=== PATIENT | female | born 1955 | race Caucasian/White ===

== ENCOUNTER 2020-01-14 00:43 | Day surgery (SDC) | payer OTHER, SELFPAY ==
[2020-01-11 12:07] VITALS: BMI 26.6
[2020-01-14] VITALS (16 sets, daily range): BP systolic 116–168; BP diastolic 65–98; PULSE 67–82; RESP 12–20; TEMP 36.8; O2SAT 94–100
[2020-01-14 11:20] LABS: Basophils Absolute Auto 0.1 K/mm3 (0.0-0.1); Basophils Percent Auto 1.1 % (0.2-1.2); Eosinophils Absolute Auto 0.1 K/mm3 (0-0.3); Eosinophils Percent Auto 2.5 % (0-4.4); Hematocrit 39.3 % (37.0-47.0); Immature Granulocyte Absolute 0.02 K/mm3 (0.00-0.031); Immature Granulocyte Percent A 0.4 % (0-0.5); Lymphocytes Absolute Auto 2.46 K/mm3 (0.9-3.2); Lymphocytes Percent Auto 44.6 % (18.3-44.2); Mean Corpuscular HGB Conc 33.1 g/dl (32-36); Mean Corpuscular Volume 96.8 fl (80-100); Monocytes Absolute Auto 0.5 K/mm3 (0.1-0.6); Monocytes Percent Auto 8.3 % (2.6-8.5); Neutrophils Absolute Auto 2.4 K/mm3 (1.3-6.7); Neutrophils Percent Auto 43.1 % (45.5-73.1); Platelet Count Result 245 k/mm3 (150-375); Red Blood Count 4.06 M/mm3 (4.2-5.4); Red Cell Distribution Width 12.1 % (11.5-14.5); White Blood Count 5.5 K/mm3 (4.5-10.0)
[2020-01-14 11:29] LABS: INR 0.9; Partial Thromboplastin Time 32.1 SECONDS (22.3-36.8); Prothrombin Time 12.3 Seconds (11.1-14.7)
[2020-01-14 11:31] LABS: Blood Urea Nitrogen 6 mg/dL (7-17); Calcium 8.7 mg/dL (8.4-10.2); Carbon Dioxide 28 mmol/L (22-30); Chloride 100 mmol/L (98-107); Estimated CRCL calculation 64 ml/min; Estimated Glomerular Filt Rate > 60; Glucose 86 mg/dL (65-105); Potassium 4.1 mmol/L (3.4-5.0); Sodium 132 mmol/L (137-145)
--- NOTE | 2020-01-14 12:35 | WPDMODSED ---
Moderate Sedation Note-Pt Data Patient Data Allergies Allergy/AdvReac Type Severity Reaction Status Date / Time naproxen Allergy Unknown Nausea Verified 09/28/18 12:47 Home Medications Medication Instructions Recorded Confirmed Type albuterol sulfate [Ventolin HFA] 1 inh INHALATION QID PRN 01/14/20 01/14/20 History aspirin 81 mg PO DAILY 01/14/20 01/14/20 History cilostazol 100 mg PO BID 01/14/20 01/14/20 History clopidogrel 75 mg PO DAILY 01/14/20 01/14/20 History fluticasone propionate 1 inh INHALATION BID 01/14/20 01/14/20 History gabapentin 300 mg PO QID 01/14/20 01/14/20 History loratadine 10 mg PO DAILY 01/14/20 01/14/20 History memantine 5 mg PO BID 01/14/20 01/14/20 History prednisone 5 mg PO DAILY 01/14/20 01/14/20 History spironolactone 25 mg PO DAILY 01/14/20 01/14/20 History umeclidinium 1 inh INHALATION DAILY 01/14/20 01/14/20 History varenicline [Chantix] 1 mg PO BID 01/14/20 01/14/20 History Current Medications: Active Medications Sodium Chloride (Normal Saline Iv) 500 mls @ 100 mls/hr IV CONT .Q5H [facility] Sedation/Anesthesia: No previous sedation/anesthesia problems (including family history). [facility] Social History Social History Gender identity (if verbalized by the patient): Female Mod Sed Physical Exam Physical Exam Pre Procedural Exam: Normal: Appearance, Eyes, Ears, Nose, Neck, Throat, Airway, Lungs, Heart Size, Heart Rate, Heart Rhythm, Neuro Exam, Abdomen, Liver, Kidneys, Spleen, Breasts, Genitalia, Extremities and Skin Hours since solid foods: 8 Hours since liquid intake: 8 Internal Medicine - PN: Obj Da Vital Signs Vital Signs: Vital Signs - 24 hr 01/14/20 11:32 Temperature 36.8 C Pulse Rate 77 Respiratory Rate 13 Blood Pressure 130/84 Pulse Oximetry 94 Meds/Results Medications: Active Medications Generic Name Dose Route Start Last Admin Trade Name Freq PRN Reason Stop Dose Admin Sodium Chloride 500 mls @ 100 mls/hr 01/14/20 06:05 Normal Saline Iv IV CONT .Q5H [facility] Labs CBC & Chem 7: 01/14/20 10:58 01/14/20 10:58 Labs: Laboratory Results - last 24 hr 01/14/20 01/14/20 01/14/20 10:58 10:58 11:07 WBC 5.5 RBC 4.06 L Hgb 13.0 Hct 39.3 MCV 96.8 MCH 32.0 MCHC 33.1 RDW 12.1 Plt Count 245 MPV 9.0 Immature Gran % (Auto) 0.4 Neut % (Auto) 43.1 L Lymph % (Auto) 44.6 H [place] % (Auto) 8.3 Eos % (Auto) 2.5 Baso % (Auto) 1.1 Lymph # (Auto) 2.46 [place] # (Auto) 0.5 Eos # (Auto) 0.1 Baso # (Auto) 0.1 Abs Immat Gran (auto) 0.02 Absolute Neuts (auto) 2.4 Absolute Nucleated RBC 0.0 Nucleated RBC % 0.0 PT 12.3 INR 0.9 APTT 32.1 Sodium 132 L Potassium 4.1 Chloride 100 Carbon Dioxide 28 BUN 6 L Creatinine 0.70 Estim Creat Clear Calc 64 Estimated GFR > 60 Glucose 86 Calcium 8.7 ASA Classification/Sedation ASA Classification/Sedation ASA Class: II Risks: Risks, benefits and alternatives explained and patient/family accepted plan for sedation. Patient re-evaluated immediately prior to sedation.
--- NOTE | 2020-01-14 12:36 | WPDHPUPDATE1 ---
History and Physical Update Update Date/Time: 01/14/20 12:36 History and Physical has been reviewed, including an updated exam of the patient. There are NO changes in the patient's condition. Risks, benefits, and alternatives have been discussed and questions answered. Patient agrees to proceed with procedure.
--- NOTE | 2020-01-14 13:34 | WPDCARDPROC ---
Cardiac Cath Procedure Note Date of procedure:: 01/14/20 Performing physician:: Bruce Thomas MD Procedure: 1. Left heart catheterization, selective coronary angiogram. 2. Left ventricular angiogram. 3. Abdominal aorta angiogram with distal runoff 4. None selective left common iliac angiogram with distal runoff 5. Selective right common iliac artery angiogram with distal runoff 6. Conscious sedation, starting time is 12:40 p.m. ending time is 1:20 p.m. she received 2 mg of Versed 25 mcg fentanyl Bioprocessing Manufacturing Technician: Dr. Bruce Thomas Complications: None. Sedation: Conscious sedation, local anesthesia, using 1 mg of Versed said, 25 mcg of fentanyl, and using 1% lidocaine for local anesthesia. Technique: After informed consent was obtained from patient, was brought to the agriculture laboratory technician, put in the agriculture laboratory technician table, prepped and draped in usual sterile fashion. [place] sheath was inserted into the right common femoral artery, through the sheath 5 [place] JL4 catheter inserted, advanced to the left coronary artery, left coronary artery angiogram was obtained. The catheter was exchanged over guidewire into a 5 [place] JR4 catheter, advanced to the right coronary artery, right coronary artery angiogram was obtained. The catheter then was exchanged over guidewire into this 5 [place] pigtail catheter, advanced to left ventricle, left ventricular angiogram was obtained. The pigtail catheter was pulled to the level of the abdominal aorta, abdominal aorta angiogram with distal runoff was obtained. The catheter then was pulled to the level of the aortic bifurcation, none selective left common iliac artery angiogram with distal runoff was obtained. The catheter then was exchanged over a guidewire to 5 [place] JR4 catheter advanced to the proximal portion of the right common iliac right common iliac artery angiogram with distal runoff was obtained. The catheter then was pulled, the sheath was pulled applying manual pressure for arterial hemostasis. Patient tolerated the procedure no complication, taken from the agriculture laboratory technician to his room in stable condition stable vital signs. Hemodynamics: aortic pressure 104/60 . LV pressure 104/04 with LVEDP of 14 mmHg Angiographic findings: Left main: Medium size artery no significant disease or stenosis. Lad medium size artery showed, patent LAD stent with 40% InStent restenosis in the proximal portion of the stent Left circumflex artery, medium size artery, no significant disease or stenosis. RCA: Dominant vessel, showed mid RCA significant irregularity with a 40-50% disease. LV: Normal size left ventricle with normal left ventricular systolic function. Abdominal aorta showed significant atherosclerotic plaque with soft plaque noted in the area of infrarenal aorta, with 40% disease but soft plaque noted. Renal arteries are patent bilaterally with no obstructive lesions. Right common iliac showed distal 75% disease, right external iliac showed 90% disease, with sheath obstructing the common femoral artery indicative of significant disease of the right common femoral artery. Performed as patent right SFA showed [id number] diffuse disease, popliteal on the right is patent there is 3 vessel good distal runoff noted on the right side. Left common iliac showed minimal plaque, with distal iliac 90% disease with shelf-like lesion, extending to the left external iliac, left internal iliac seems to be totally occluded or subtotally occluded. Left common femoral is patent with minimal disease left profundus patent left SFA showed distal SFA 75% disease. Popliteal is patent, with good three-vessel distal runoff Summary: Mild coronary artery disease, normal left ventricular systolic function. Severe peripheral vascular disease with bilateral iliac artery disease, and left SFA stenosis Recommendation: Maximum medical treatment. Risk factor modification, for coronary artery disease. Will arrange for angioplasty stent placement to the lauren
--- NOTE | 2020-01-14 13:39 | SUR.PHASEII ---
Patient returns to [facility] room 3 post LHC and Peripheral Angiogram. Instructed on Bedrest and restrictions. 5 fr sheath remains in R femoral artery. No signs of bleeding or hematoma will continue to monitor.
--- NOTE | 2020-01-14 14:19 | SUR.PHASEII ---
1409 Sheath removed per protocol by Alexandria RN, Jeovany RN at bedside, firm manual pressure applied, no signs of bleeding or hematoma. Will continue to monitor.
--- NOTE | 2020-01-14 15:57 | SUR.PHASEII ---
1555-Pt up to thirty degrees. No distress noted. Groin soft and non-tender, no evidence of bleeding or hematoma noted. Will continue to monitor.
--- NOTE | 2020-01-14 20:48 | SUR.PHASEII ---
01/14/20:1940:PATIENT UP TO BEDSIDE RECLINER. RT GROIN SITE IS CLEAN AND DRY. NO HEMATOMA OR BLEEDING NOTED. PULSES WEAK AND PALPATED.
--- NOTE | 2020-01-14 20:49 | SUR.PHASEII ---
01/14/20:1945: PATIENT WALKED TO THE RESTROOM WITHOUT ASSISTANCE. NO LIGHTHEADEDNESS OR DIZZY. RT GROIN SITE IS UNCHANGED FROM EARLIER.
--- NOTE | 2020-01-14 20:51 | SUR.PHASEII ---
01/14/20:1947:DETAILED DISCHARGE INSTRUCTIONS GIVEN TO PATIENT. PATIENT VERBALIZED AN UNDERSTANDING OF THESE INSTRUCTION. PATIENTS DISCHARGE INSTRUCTIONS WITH PATIENT.
--- NOTE | 2020-01-14 20:52 | SUR.PHASEII ---
01/14/20:1954:IV REMOVED FROM LT HAND, SHEATH INTACT. NO HEMATOMA, SOME SLIGHT BLEEDING, HELD PRESSURE COUPLE MINUTES, APPLIED DRESSING.
--- NOTE | 2020-01-14 20:53 | SUR.PHASEII ---
01/14/20:1999: PATIENT DRESSED SELF WITHOUT ASSISTANCE. RT GROIN IS CLEAN AND DRY. NO HEMATOMA OR BLEEDING NOTED. PULSES PATED WEAK.
--- NOTE | 2020-01-14 20:55 | SUR.PHASEII ---
01/14/20:2002: PATIENT DISCHARGED TO HOME VIA WHEELCHAIR.
== END 2020-01-14 20:03 | disposition home or self-care (01) ==
PROVIDERS: Visit Provider Specialist
PROC: 4A023N7 Measurement of Cardiac Sampling and Pressure, Left Heart, Percutaneous Approach (ICD-10-PCS; CPT 93452; principal; 2020-01-14 12:00)
PROC: (CPT 75630; 2020-01-14 12:00)
DX: I25.10 Atherosclerotic heart disease of native coronary artery without angina pectoris (principal); I73.9 Peripheral vascular disease, unspecified; R06.00 Dyspnea, unspecified; R07.89 Other chest pain; R94.39 Abnormal result of other cardiovascular function study; I11.0 Hypertensive heart disease with heart failure; I50.9 Heart failure, unspecified; E78.5 Hyperlipidemia, unspecified; I34.1 Nonrheumatic mitral (valve) prolapse; J44.9 Chronic obstructive pulmonary disease, unspecified; F41.8 Other specified anxiety disorders; Z79.82 Long term (current) use of aspirin; Z79.02 Long term (current) use of antithrombotics/antiplatelets; Z95.5 Presence of coronary angioplasty implant and graft
CPT/HCPCS: 36415; 75630; 80048; 85025; 85610; 85730; 93458; C1887; C1894; J1644; J2250; J3010; J7040

== ENCOUNTER 2020-04-15 20:50 | Inpatient (IN) | payer OTHER, SELFPAY ==
[2020-04-15] VITALS (7 sets, daily range): BP systolic 133; BP diastolic 71; PULSE 106–115; RESP 16–26; TEMP 38.1–38.6; O2SAT 87–93
--- NOTE | ~2020-04-15 | CT_ITS ---
EXAMINATION: CTA chest PE protocol EXAM DATE: 04/15/2020 23:44 INDICATION: Shortness of breath. Airspace disease. TECHNIQUE: Spiral CTA of the chest (pulmonary arteries) was performed with 100 cc Omnipaque 350 intr avenous contrast injection. Images were acquired during the pulmonary arterial phase. Coronal maxi mum intensity projection 3D-reconstructions were created by the technologist on dedicated workstation . Axial, coronal and sagittal reformatted images were reviewed. The dose-length product (DLP) for t his examination was 975.36 mGy-cm. The exposure was tailored according to patient size (auto mA exp osure control), and iterative reconstruction (ASIR) was used as additional dose reduction technique. There is no prior study for comparison. FINDINGS: There are no pulmonary emboli in the 1st through 3rd order (central and interlobar) pulmon marcella arteries. Some loss of attenuation in the segmental pulmonary arteries due to respiratory motion and suboptimal opacification, but no intraluminal filling defects suspected (patient was scanned twi ce. No thoracic aortic dissection. There is right upper lobe posterior segmental airspace disease consistent with bacterial pneumonia. S cattered punctate tree-in-bud pattern reticular nodular opacities consistent with endobronchial sprea d of infection. Mild right hilar lymphadenopathy likely reactive. Small pericardial effusion, trace right pleural effusion. Tracheobronchial tree is patent. There is no mediastinal, hilar or axillar y lymphadenopathy. There is no pneumothorax. Heart normal in size. There is mild coronary arter ial calcification, arterial sclerosis. Upper abdomen is unremarkable. There is thoracic spondylosi s without osteoblastic or osteolytic lesions identified. IMPRESSION: 1. Limited segmental evaluation, but no pulmonary emboli are suspected. 2. Right upper lobe posterior segmental pneumonia, mild reactive hilar lymphadenopathy. Recommend fo llow-up chest x-ray to resolution. 3. Scattered tree-in-bud reticulonodular opacities likely endobronchial spread of infection. Reviewed, dictated and finalized at location G. IMPRESSION: 1. Limited segmental evaluation, but no pulmonary emboli are suspected. 2. Right upper lobe posterior segmental pneumonia, mild reactive hilar lymphad enopathy. Recommend follow-up chest x-ray to resolution. 3. Scattered tree-in-bud reticulonodular opacities likely endobronchial spread of infection.
--- NOTE | ~2020-04-15 | XR_ITS ---
EXAMINATION: XR chest 2V EXAM DATE: 04/15/2020 21:59 INDICATION: Short of breath. TECHNIQUE: Frontal and lateral projections of the chest obtained and reviewed. There is no prior solitario dy for comparison. FINDINGS: There is right upper lobe segmental airspace disease, appearance most consistent with bact erial pneumonia. Follow-up to resolution to exclude postobstructive infection from underlying cancer. Small amount of bibasilar linear atelectasis. Left basilar scarring. No pneumothorax or pleural effu jyoti. Cervical fusion hardware. Left rotator cuff repair anchors. IMPRESSION: Right upper lobe subsegmental pneumonia. Follow-up to resolution is indicated. Reviewed, dictated and finalized at location A. IMPRESSION: Right upper lobe subsegmental pneumonia. Follow-up to resolution i s indicated.
[2020-04-15 21:36] LABS: Hematocrit 37.1 % (37.0-47.0); Hemoglobin 13.2 g/dL (12.0-15.0); Mean Corpuscular HGB Conc 35.6 g/dl (32-36); Mean Platelet Volume 8.5 fl (7.4-10.4); Platelet Count Result 300 k/mm3 (150-375); Red Blood Count 4.12 M/mm3 (4.2-5.4); Red Cell Distribution Width 11.7 % (11.5-14.5); White Blood Count 14.9 K/mm3 (4.5-10.0)
[2020-04-15 21:52] LABS: Band Neutrophils Percent 3 % (0-6); Blood Urea Nitrogen 10 mg/dL (7-17); Calcium 8.4 mg/dL (8.4-10.2); Carbon Dioxide 24 mmol/L (22-30); Chloride 84 mmol/L (98-107); Estimated CRCL calculation 65 ml/min; Estimated Glomerular Filt Rate > 60; Glucose 121 mg/dL (65-105); Lymphocytes Absolute Manual 0.59 K/mm3 (1.1-4.5); Monocytes Absolute Manual 1.19 K/mm3 (0.1-0.90); Monocytes Percent Manual 8 % (3-9); Neutrophils Absolute Manual 13.11 K/mm3 (1.7-7.2); Neutrophils Percent Manual 85 % (46-73); Platelet Estimate Adequate (Adequate); Potassium 4.2 mmol/L (3.4-5.0); Sodium 117 mmol/L (137-145); Total Cells Counted 100
--- NOTE | 2020-04-15 22:24 | ECG_ITS ---
Measurements Intervals [place] Rate: 107 P: 67 AK: 131 QRS: -39 QRSD: 86 T: 72 QT: 322 QTc: 430 Interpretive Statements SINUS TACHYCARDIA LEFT AXIS DEVIATION CANNOT RULE OUT SEPTAL INFARCT, AGE INDETERMINATE BASELINE ARTIFACT- I, II, III, AVR, AVL, AVF, V1-V6 ABNORMAL ECG Electronically Signed On 04-16-2020 7:21:21 CDT by Sergio House D.O.
--- NOTE | 2020-04-15 22:30 | ED.SOB ---
HPI - SOB/Dyspnea General Chief Complaint: Shortness of Breath/Dyspnea <MU Vu Last Filed: 04/16/20 00:46> Stated Complaint: sob <MU Vu Last Filed: 04/16/20 00:46> Time Seen by Provider: 04/15/20 22:10 <MU Vu Last Filed: 04/16/20 00:46> Source: patient <MU Vu Last Filed: 04/16/20 00:46> Mode of arrival: EMS <MU Vu Filed: 04/16/20 00:46> Limitations: no limitations <MU Vu Last Filed: 04/16/20 00:46> History of Present Illness HPI Narrative: This is a 64 year old female that presents to the ER for cough x 1 week. Reports shortness of breath and right sided chest pain worse with breathing. Also reports fever and congestion. <MU Vu Last Filed: 04/16/20 00:46> Related Data Home Medications: Home Medications Medication Instructions Recorded Confirmed albuterol sulfate [Ventolin HFA] 1 inh INHALATION QID PRN 01/14/20 04/15/20 aspirin 81 mg PO DAILY 01/14/20 04/15/20 clopidogrel 75 mg PO DAILY 01/14/20 04/15/20 fluticasone propionate 1 inh INHALATION BID 01/14/20 04/15/20 gabapentin 300 mg PO QID 01/14/20 04/15/20 loratadine 10 mg PO DAILY 01/14/20 04/15/20 memantine 5 mg PO BID 01/14/20 04/15/20 prednisone 5 mg PO DAILY 01/14/20 04/15/20 spironolactone 25 mg PO DAILY 01/14/20 04/15/20 umeclidinium 1 inh INHALATION DAILY 01/14/20 04/15/20 varenicline [Chantix] 1 mg PO BID 01/14/20 04/15/20 <MU Vu Last Filed: 04/16/20 00:46> Allergies/Adverse Reactions: Allergies Allergy/AdvReac Type Severity Reaction Status Date / Time naproxen Allergy Unknown Nausea Verified 04/15/20 21:31 <Deandra Neves PA-C - Last Filed: 04/16/20 00:46> Review of Systems Review of Systems: Narrative: CONSTITUTIONAL: Reports fever ENT: Reports rhinorrhea, congestion. Denies sore throat, or otalgia. CARDIOVASCULAR: Reports chest pain. Denies palpitations, or edema. RESPIRATORY: Reports cough and dyspnea. <Deandra Neves PA-C - Last Filed: 04/16/20 00:46> All systems reviewed & are unremarkable except as noted in HPI and below <Deandra Neves PA-C - Last Filed: 04/16/20 00:46> [facility] Past Medical History Medical History: Medical History (Updated 04/16/20 @ 00:39 by Deandra Neves PA-C) History of CHF (congestive heart failure) History of COPD History of coronary artery disease <Deandra Neves PA-C - Last Filed: 04/16/20 00:46> Surgical History Surgical History: Surgical History (Updated 04/16/20 @ 00:34 by Deandra Neves PA-C) History of cardiac catheterization <Deandra Neves PA-C - Last Filed: 04/16/20 00:46> Family History Family History: Family History (Updated 04/16/20 @ 02:40 by Mimi Silverman RN) Mother Breast cancer COPD (chronic obstructive pulmonary disease) Cervical cancer Sibling Heart failure Alcoholism Multiple sclerosis <Deandra Neves PA-C - Last Filed: 04/16/20 00:46> Social History Social History: Social History (Updated 04/16/20 @ 00:33 by Deandra Neves PA-C) Smoking packs per day: 2 Smoking cigarettes per day: 40.0 Years smoked: 50 Smoking pack-years: 100.00 Smoking status: Current every day smoker Tobacco type: cigarettes Second hand tobacco smoke exposure: Yes Alcohol intake: never Substance use: never Substance use type: does not use Gender identity (if verbalized by the patient): Female Spiritual care concerns: No <Deandra Neves PA-C - Last Filed: 04/16/20 00:46> Exam Narrative: Exam Narrative: GENERAL: Elderly, well-nourished, and in no acute distress. HEAD: Normocephalic, atraumatic. EYES: EOMI. ENT: Nares clear, no rhinorrhea or epistaxis. Mucous membranes moist. Oropharynx without tonsillar hypertrophy exudate or other lesions. Bilateral TMs pearly dyer non-bulging NECK: Supple. No adenopathy or masses. CHEST:
[2020-04-15 22:36] LABS: Lactic Acid Reflex 1.2 mmol/L (0.7-2.1)
[2020-04-15] MEDS: ALBUTEROL SULFATE NEB 2.5 MG/0.5 ML INH 5 MG INHALATION (22:36)
[2020-04-15] MEDS: IPRATROPIUM BR 0.02% INH SOLN 0.5 MG/2.5 ML VIAL INHALATION (22:37)
[2020-04-15 22:48] LABS: INR 1.1; Partial Thromboplastin Time 36.1 SECONDS (22.3-36.8); Prothrombin Time 13.4 Seconds (11.1-14.7)
[2020-04-15 22:51] LABS: D Dimer 0.74 ug/mL (<0.48)
[2020-04-15 22:55] LABS: NT Pro B Type Natriuretic Pept 237 PG/ML (5-100); Troponin I < 0.012 ng/mL (0.000-0.034)
[2020-04-15 23:07] LABS: CRP 37.2 mg/dL (<1.0)
[2020-04-15] MEDS: SODIUM CHLORIDE 0.9% IV 500 ML 999 ML IV CONT (23:25)
[2020-04-16] VITALS (20 sets, daily range): BP systolic 83–127; BP diastolic 55–78; PULSE 78–106; RESP 16–24; TEMP 36.3–37.1; O2SAT 95–100; BMI 25.9
[2020-04-16] MEDS: IPRATROPIUM BR 0.02% INH SOLN 0.5 MG/2.5 ML VIAL INHALATION (00:17)
[2020-04-16] MEDS: ALBUTEROL SULFATE NEB 2.5 MG/0.5 ML INH 5 MG INHALATION (00:17)
[2020-04-16] MEDS: SODIUM CHLORIDE 0.9% IV 1,000 ML 999 ML IV CONT (00:30)
--- NOTE | 2020-04-16 02:23 | ADMGEN ---
This patient, Latoya Barlow, was admitted to Intensive Care Unit-3. Patient/family oriented to hospital policies and general routines including ID bracelet, bed and alarms, visiting hours, pain management, procedures, bathroom and other care routines, personal items, smoking policy, room service/diet, and visiting hours. Valuables list has been completed. Information on how to activate the Rapid Response Team has been discussed. Patient/Family are encouraged to report perceived risks to care and to ask questions if they do not understand what they are told or what they should do.
[2020-04-16] MEDS: ALBUTEROL SULFATE (*SP) AEROSOL 1 PUFF 6 PUFF INHALATION ×4 (03:02→20:59)
[2020-04-16 06:03] LABS: Basophils Percent Auto 0.2 % (0.2-1.2); Hematocrit 37.2 % (37.0-47.0); Hemoglobin 13.1 g/dL (12.0-15.0); Immature Granulocyte Absolute 0.09 K/mm3 (0.00-0.031); Immature Granulocyte Percent A 0.6 % (0-0.5); Lymphocytes Absolute Auto 0.99 K/mm3 (0.9-3.2); Lymphocytes Percent Auto 6.8 % (18.3-44.2); Mean Corpuscular HGB Conc 35.2 g/dl (32-36); Mean Corpuscular Hemoglobin 32.3 pg (26-34); Mean Corpuscular Volume 91.9 fl (80-100); Mean Platelet Volume 8.6 fl (7.4-10.4); Monocytes Absolute Auto 0.9 K/mm3 (0.1-0.6); Monocytes Percent Auto 5.9 % (2.6-8.5); Neutrophils Absolute Auto 12.7 K/mm3 (1.3-6.7); Neutrophils Percent Auto 86.5 % (45.5-73.1); Platelet Count Result 316 k/mm3 (150-375); Red Blood Count 4.05 M/mm3 (4.2-5.4); Red Cell Distribution Width 11.9 % (11.5-14.5); White Blood Count 14.6 K/mm3 (4.5-10.0)
[2020-04-16 06:22] LABS: Lactate Dehydrogenase 449 U/L (313-618)
[2020-04-16 06:47] LABS: CRP 33.3 mg/dL (<1.0)
[2020-04-16 07:54] LABS: Blood Urea Nitrogen 6 mg/dL (7-17); Calcium 8.4 mg/dL (8.4-10.2); Carbon Dioxide 25 mmol/L (22-30); Chloride 91 mmol/L (98-107); Estimated CRCL calculation 68 ml/min; Estimated Glomerular Filt Rate > 60; Glucose 123 mg/dL (65-105); Potassium 3.6 mmol/L (3.4-5.0); Sodium 124 mmol/L (137-145)
--- NOTE | 2020-04-16 09:23 | PM.IMHP ---
H&P: HPI History of Present Illness Chief complaint: Pneumonia, sepsis, hyponatremia Narrative: Date and Time of History and Physical: April 16, 2020 at 12:09 a.m. 5:00 a.m.. Date and Time of Admission Order: April 16, 2020 at 12:28 a.m.. Chief Complaint: Shortness of breath with bilateral rib pain. History of Present Illness: Latoya Barlow is a 64 year old female with known COPD, coronary artery disease, peripheral arterial disease and CHF who presented to the emergency room with a one-week history of shortness of breath along with bilateral lower rib pain. Patient reports symptoms were worsening over the past week. She did have subjective fever and chills at home but did not have a thermometer to check her temperature. She also reports decrease in appetite with poor oral intake. No nausea or vomiting. No abdominal pain. No constipation or diarrhea. She denies chest pain with her symptoms. No diaphoresis. She has been staying at home with the current pandemic only going out to stores for necessity. She has no known exposure to COVID-19 to her knowledge. She denies change in taste or smell. No vision changes. She does report some issues with memory prior to current situation. She does have a past history of having had pneumonia. She does continue to smoke 2 packs of cigarettes daily. With increasing symptoms, she did present to the emergency room. Findings in the emergency room were consistent with for possible COVID 19 infection. Also consistent with sepsis and hyponatremia. As a result, patient has been admitted to the IMU for further evaluation and treatment. Review of Systems Review of Systems: All systems reviewed & are unremarkable except as noted in HPI and below Constitutional: Constitutional: Reports chills, Reports fever(s) and Reports poor appetite Eyes: Eyes: Denies blurry vision and Denies diplopia ENT: Denies dysphagia, Denies nasal congestion and Denies nasal discharge Comments: no loss of taste or smell Cardiovascular: Cardiovascular: Denies chest pain, Denies leg edema and Denies lightheadedness Respiratory: Respiratory: Reports cough and Reports dyspnea Gastrointestinal: Gastrointestinal: Denies abdominal pain, Denies constipation, Denies diarrhea, Denies nausea and Denies vomiting Genitourinary: Genitourinary: Denies hematuria, Denies nocturia and Denies dysuria Musculoskeletal: Comments: bilateral rib pain with coughing; claudication pain in legs from known peripheral arterial disease Integumentary/Breasts: Skin/Breast: Denies rash Neurologic: Denies headache(s) Comments: known memory issues Psychiatric: Psychiatric: Denies anxiety and Denies depression Endocrine: Endocrine: Reports no additional endocrine complaints Hematologic/Lymphatic: Hematologic/Lymphatic: Reports no additional hematologic/lymphatic complaints Allergic/Immunologic: Allergic/Immunologic: Reports no additional allergic/immunologic complaints [facility] Past Medical History Medical History (Updated 04/16/20 @ 09:53 by Enedina Anders MD) History of CHF (congestive heart failure) History of COPD History of coronary artery disease Surgical History Surgical History H/O neck surgery pins placed in neck H/O: hysterectomy History of cardiac catheterization History of carpal tunnel release of both wrists History of tooth extraction Family History Family History Mother Breast cancer COPD (chronic obstructive pulmonary disease) Cervical cancer Sibling Heart failure Alcoholism Multiple sclerosis Social History Social History Social History: Patient is . She lives with her male friend. She has no children. She is a current smoker. She is a full code. She does designate her 2 sisters, Marisol Beard and Luz Mario, as her healt
[2020-04-16] MEDS: ASPIRIN 81 MG ENTERIC TABLET PO (10:35)
[2020-04-16] MEDS: CLOPIDOGREL BISULFATE 75 MG TABLET PO (10:35)
[2020-04-16] MEDS: GABAPENTIN 300 MG CAPSULE PO ×4 (10:36→20:27)
[2020-04-16] MEDS: predniSONE 5 MG TABLET PO (10:36)
[2020-04-16] MEDS: LORATADINE 10 MG TABLET PO (10:36)
[2020-04-16] MEDS: MEMANTINE 5 MG TABLET PO ×2 (10:36→20:27)
[2020-04-16] MEDS: ENOXAPARIN 40 MG/0.4 ML SYRINGE SUB-Q (10:37)
[2020-04-16 12:58] LABS: SARS-CoV-2 RNA PCR Negative
--- NOTE | 2020-04-16 16:35 | PCDIET ---
This patient, Latoya Barlow, was received from ICU 3 on 04/16/20 at 1635. Report received from LEXY Harrison. Patient oriented to unit policies and routines
--- NOTE | 2020-04-16 16:38 | PC.NURSE ---
This patient, Latoya Barlow, was transferred to [facility] on 04/16/20 at 1630 via bed without issue. Personal belongings and medications sent with patient. Belongings list checked. Report given to LEXY Mckeon. Appropriate documentation sent with patient.
[2020-04-17] VITALS (10 sets, daily range): BP systolic 103–141; BP diastolic 61–70; PULSE 70–94; RESP 18–20; TEMP 36.3–36.6; O2SAT 92–100
[2020-04-17] MEDS: ALBUTEROL SULFATE (*SP) AEROSOL 1 PUFF 6 PUFF INHALATION ×2 (02:50→08:13)
[2020-04-17 04:44] LABS: Basophils Percent Auto 0.1 % (0.2-1.2); Eosinophils Percent Auto 0.4 % (0-4.4); Hematocrit 33.7 % (37.0-47.0); Hemoglobin 11.6 g/dL (12.0-15.0); Immature Granulocyte Absolute 0.03 K/mm3 (0.00-0.031); Immature Granulocyte Percent A 0.4 % (0-0.5); Lymphocytes Absolute Auto 1.67 K/mm3 (0.9-3.2); Lymphocytes Percent Auto 22.4 % (18.3-44.2); Mean Corpuscular HGB Conc 34.4 g/dl (32-36); Mean Corpuscular Hemoglobin 31.4 pg (26-34); Mean Corpuscular Volume 91.3 fl (80-100); Mean Platelet Volume 8.3 fl (7.4-10.4); Monocytes Absolute Auto 0.7 K/mm3 (0.1-0.6); Monocytes Percent Auto 8.8 % (2.6-8.5); Neutrophils Absolute Auto 5.1 K/mm3 (1.3-6.7); Neutrophils Percent Auto 67.9 % (45.5-73.1); Platelet Count Result 322 k/mm3 (150-375); Red Blood Count 3.69 M/mm3 (4.2-5.4); Red Cell Distribution Width 11.8 % (11.5-14.5); White Blood Count 7.5 K/mm3 (4.5-10.0)
[2020-04-17 05:37] LABS: Alanine Aminotransferase 18 U/L (4-35); Albumin Level 3.1 g/dL (3.5-5.1); Alkaline Phosphatase 71 U/L (38-126); Aspartate Amino Transferase 42 U/L (14-36); Bilirubin,Total 0.1 mg/dL (0.2-1.3); Blood Urea Nitrogen 6 mg/dL (7-17); CRP 29.5 mg/dL (<1.0); Calcium 8.3 mg/dL (8.4-10.2); Carbon Dioxide 28 mmol/L (22-30); Chloride 95 mmol/L (98-107); Estimated CRCL calculation 68 ml/min; Estimated Glomerular Filt Rate > 60; Glucose 98 mg/dL (65-105); Potassium 3.6 mmol/L (3.4-5.0); Sodium 128 mmol/L (137-145)
[2020-04-17] MEDS: MEMANTINE 5 MG TABLET PO (09:14)
[2020-04-17] MEDS: CLOPIDOGREL BISULFATE 75 MG TABLET PO (09:14)
[2020-04-17] MEDS: GABAPENTIN 300 MG CAPSULE PO ×2 (09:14→12:52)
[2020-04-17] MEDS: ASPIRIN 81 MG ENTERIC TABLET PO (09:14)
[2020-04-17] MEDS: predniSONE 5 MG TABLET PO (09:14)
[2020-04-17] MEDS: LORATADINE 10 MG TABLET PO (09:14)
[2020-04-17] MEDS: ENOXAPARIN 40 MG/0.4 ML SYRINGE SUB-Q (09:15)
[2020-04-17] MEDS: VARENICLINE 1 MG TABLET PO (09:16)
--- NOTE | 2020-04-17 14:27 | PM.IMPN ---
Progress Note: A&P Assessment and Plan (1) Sepsis: Qualifiers: Acute respiratory failure type: with hypoxia Sepsis acute organ dysfunction status: with acute organ dysfunction Sepsis type: sepsis due to unspecified organism Severe sepsis acute organ dysfunction type: acute respiratory failure Severe sepsis shock status: without septic shock Qualified Code(s): A41.9 - Sepsis, unspecified organism; R65.20 - Severe sepsis without septic shock; J96.01 - Acute respiratory failure with hypoxia Code(s): A41.9 - Sepsis, unspecified organism Status: Acute Assessment and Plan: Criteria met on admission. Result of pneumonia. Blood pressure reviewed on 04/17/2020 and now slightly elevated. Not on IV fluids. COVID-19 infection negative. Continue antibiotics as noted below. Blood cultures x2 negative to date. WBC is normal. No longer requiring oxygen. Telemetry reviewed on 04/17/2020 with sinus rhythm. Will discharge home today as stable. (2) Community acquired pneumonia: Qualifiers: Laterality: right Lung location: upper lobe of lung Qualified Code(s): J18.9 - Pneumonia, unspecified organism Code(s): J18.9 - Pneumonia, unspecified organism Status: Acute Assessment and Plan: Chest x-ray on admission with right upper lobe subsegmental pneumonia. CTA chest with posterior segmental pneumonia, mild reactive hilar lymphadenopathy, no pulmonary emboli seen and scattered tree-in-bud reticulonodular opacities likely endobronchial spread of infection also present. Has been on IV azithromycin and ceftriaxone here. WBC is normal. Has now weaned to room air. Will discharge on oral Levaquin. (3) Suspected COVID-19 virus infection: Code(s): Z20.828 - Contact with and (suspected) exposure to other viral communicable diseases Status: Ruled-out Assessment and Plan: COVID-19 testing negative. Isolation discontinued. Elevated CRP result of pneumonia. (4) Acute hyponatremia: Code(s): E87.1 - Hypo-osmolality and hyponatremia Status: Acute Assessment and Plan: Sodium was down to 117 in the ER. Sodium has now stabilized at 1:28 a.m. today. This does appear to be within her baseline based on previous records. Will need to monitor as an outpatient as will need to restart her spironolactone for other reasons. (5) COPD (chronic obstructive pulmonary disease): Qualifiers: COPD type: unspecified COPD Qualified Code(s): J44.9 - Chronic obstructive pulmonary disease, unspecified Code(s): J44.9 - Chronic obstructive pulmonary disease, unspecified Status: Acute Assessment and Plan: Does not appear to have exacerbation at this time. Will have patient resume her home inhalers upon discharge. Continue treatment of pneumonia as noted above. (6) CAD (coronary artery disease): Qualifiers: Associated angina: without angina Coronary Disease-Associated Artery/Lesion type: [place] artery [place] vs. transplanted heart: [place] heart Qualified Code(s): I25.10 - Atherosclerotic heart disease of [place] coronary artery without angina pectoris Code(s): I25.10 - Atherosclerotic heart disease of [place] coronary artery without angina pectoris Status: Acute Assessment and Plan: Recent cardiac catheterization in January 2020 with no intervention needed. Medical management in place. Continue home Plavix and ASA. (7) CHF (congestive heart failure): Qualifiers: Heart failure chronicity: chronic Heart failure type: unspecified Qualified Code(s): I50.9 - Heart failure, unspecified Code(s): I50.9 - Heart failure, unspecified Status: Acute Assessment and Plan: No exacerbation. Spironolactone held on admission due to lower blood pressure. Blood pressure has now recovered and will resume at discharge. (8) Tobacco abuse: Code(s): Z72.0 - Tobacco use Status: Acute As
--- NOTE | 2020-04-17 18:52 | PM.DS ---
DS: Admitting Diagnosis Admitting Diagnosis Admitting Diagnosis: Sepsis, unspecified organism DS: Discharge Diagnosis Discharge Diagnosis (1) Sepsis: Qualifiers: Acute respiratory failure type: with hypoxia Sepsis acute organ dysfunction status: with acute organ dysfunction Sepsis type: sepsis due to unspecified organism Severe sepsis acute organ dysfunction type: acute respiratory failure Severe sepsis shock status: without septic shock Qualified Code(s): A41.9 - Sepsis, unspecified organism; R65.20 - Severe sepsis without septic shock; J96.01 - Acute respiratory failure with hypoxia Code(s): A41.9 - Sepsis, unspecified organism Status: Acute (2) Acute respiratory failure: Qualifiers: Respiratory failure complication: hypoxia Qualified Code(s): J96.01 - Acute respiratory failure with hypoxia Code(s): J96.00 - Acute respiratory failure, unspecified whether with hypoxia or hypercapnia Status: Acute (3) Community acquired pneumonia: Qualifiers: Laterality: right Lung location: upper lobe of lung Qualified Code(s): J18.9 - Pneumonia, unspecified organism Code(s): J18.9 - Pneumonia, unspecified organism Status: Acute (4) Suspected COVID-19 virus infection: Code(s): Z20.828 - Contact with and (suspected) exposure to other viral communicable diseases Status: Ruled-out (5) Acute hyponatremia: Code(s): E87.1 - Hypo-osmolality and hyponatremia Status: Acute (6) COPD (chronic obstructive pulmonary disease): Qualifiers: COPD type: unspecified COPD Qualified Code(s): J44.9 - Chronic obstructive pulmonary disease, unspecified Code(s): J44.9 - Chronic obstructive pulmonary disease, unspecified Status: Acute (7) CAD (coronary artery disease): Qualifiers: Associated angina: without angina Coronary Disease-Associated Artery/Lesion type: [place] artery [place] vs. transplanted heart: [place] heart Qualified Code(s): I25.10 - Atherosclerotic heart disease of [place] coronary artery without angina pectoris Code(s): I25.10 - Atherosclerotic heart disease of [place] coronary artery without angina pectoris Status: Acute (8) CHF (congestive heart failure): Qualifiers: Heart failure chronicity: chronic Heart failure type: unspecified Qualified Code(s): I50.9 - Heart failure, unspecified Code(s): I50.9 - Heart failure, unspecified Status: Acute (9) Tobacco abuse: Code(s): Z72.0 - Tobacco use Status: Acute DS: Summary Hospital Course Reason for hospitalization: Shortness of breath with bilateral rib pain. Hospital Course: Date of Service of Discharge: April 17, 2020. History of Present Illness: Patient is a 64-year-old with known COPD, coronary artery disease, peripheral arterial disease and CHF who presented to the emergency room with a one-week history of shortness of breath along with bilateral lower rib pain. She reports her symptoms have been worsening over the past week. She did report subjective fever and chills but did not have a thermometer to check her temperature. She also reports a decrease in appetite with poor oral intake. No abdominal pain, nausea or vomiting. No constipation or diarrhea. She denies chest pain or pressure with her symptoms. No diaphoresis. She does report she has been staying at home due to the current pandemic. No known exposure to COVID-19 to her knowledge. No change in taste or smell. She does report she has known memory issues prior to this situation. She also has a past history of pneumonia. She does continue to smoke but is trying to quit. With increasing symptoms, she presented to the emergency room. On evaluation in the emergency room, findings were consistent with sepsis, pneumonia, acute respiratory failure and possible COVID-19 infection. As result, she was admitted for further evaluation and treatment. Cour
== END 2020-04-17 15:16 | disposition home or self-care (01) | DRG 720 ==
LOC: ANHED 04-16 00:39 → ANHICU 04-16 02:41 → ANHIMU 04-17 10:11 → ANHICU 04-21 12:21 → ANHIMU 04-21 12:21
PROVIDERS: Physician Assistant; Admitting Provider Internal Medicine; Emergency Provider General Practice; PCP Internal Medicine; Visit Provider Hospitalist
DX: A41.9 Sepsis, unspecified organism (principal); J96.01 Acute respiratory failure with hypoxia; J44.0 Chronic obstructive pulmonary disease with (acute) lower respiratory infection; J18.9 Pneumonia, unspecified organism; R65.20 Severe sepsis without septic shock; Z20.828 Contact with and (suspected) exposure to other viral communicable diseases; E87.1 Hypo-osmolality and hyponatremia; I25.10 Atherosclerotic heart disease of native coronary artery without angina pectoris; I50.9 Heart failure, unspecified; I73.9 Peripheral vascular disease, unspecified; F17.210 Nicotine dependence, cigarettes, uncomplicated; Z79.82 Long term (current) use of aspirin; Z79.899 Other long term (current) drug therapy
CPT/HCPCS: 36415; 71046; 71275; 80048; 80053; 82728; 83605; 83615; 83880; 84484; 85025; 85380; 85610; 85730; 86140; 87040; 87635; 93005; 94640; 96365; 96367; 96368; 99285; A9270; C9803; J0131; J0456; J0696; J1650; J7030; J7040; J7512; Q9967; U0003

== ENCOUNTER 2023-03-17 12:36 | Emergency (ER) | payer MEDICARE, MEDICAID, SELFPAY ==
[2023-03-17] VITALS (15 sets, daily range): BP systolic 122–162; BP diastolic 77–97; PULSE 81–95; RESP 14–21; TEMP 36.7; O2SAT 96–100
--- NOTE | ~2023-03-17 | CT_ITS ---
EXAMINATION: CT abdomen pelvis w con DATE: 03/17/2023 14:15 INDICATION: Generalized abdominal pain. TECHNIQUE: Computed tomography (CT) of the abdomen and pelvis was performed with 100 mL Omnipaque 350 intravenous contrast. Automated exposure control and iterative reconstruction technique were employe d. The dose-length product was 291.22 mGy-cm. COMPARISON: None. FINDINGS: The visualized portions of the lung bases demonstrate mild atelectasis. A calcified left phillip ng nodule is consistent with old granulomatous disease. No pleural effusion. The heart size is normal . No pericardial effusion. The liver and gallbladder are normal. Calcifications in the spleen are con sistent with old granulomatous disease. The pancreas, adrenal glands, and kidneys are normal. There i s calcified atherosclerosis of the aorta and many of the other arteries. There are no dilated loops o f bowel. The appendix is normal. There are no pathologically enlarged lymph nodes. There is no free i ntraperitoneal fluid. There is prominent fat in the inguinal canals that may be hernias. There is lum bar dextrocurvature and moderate spondylosis. IMPRESSION: 1. Prominent fat in the inguinal canals that may be hernias. Reviewed, dictated and finalized at location A.
--- NOTE | ~2023-03-17 | XR_ITS ---
EXAMINATION: XR chest 1V Exam Date/Time: 03/17/2023 14:10 CDT HISTORY: SOB/CP/ PALPITATIONS Comparison: 04/15/2020. RESULT: Lines, tubes, and devices: ACDF hardware. Soft tissue anchors over the left glenoid. Lungs and pleura: Calcified left lower lung granuloma. No focal consolidation. Cardiomediastinal silhouette: Stable. Calcified hilar nodes. Other: No acute osseous or upper abdominal finding. IMPRESSION: No acute cardiopulmonary process. Reviewed, dictated and finalized at location K.
--- NOTE | 2023-03-17 12:58 | ECG_ITS ---
Measurements Intervals [place] Rate: 77 P: 74 [place]: 149 QRS: -64 QRSD: 84 T: 62 QT: 386 QTc: 437 Interpretive Statements SINUS RHYTHM ATRIAL PREMATURE COMPLEX LEFT ANTERIOR FASCICULAR BLOCK CANNOT RULE OUT SEPTAL INFARCT, AGE INDETERMINATE ABNORMAL ECG COMPARED TO ECG 04/15/2020 21:00:15 SINUS RHYTHM NOW PRESENT LEFT ANTERIOR FASCICULAR BLOCK NOW PRESENT Electronically Signed On 03-17-2023 13:45:10 CDT by Sergio House D.O.
[2023-03-17 13:03] LABS: Glucose Point of Care 74 mg/dl (65-105)
--- NOTE | 2023-03-17 13:21 | ED.NAVMDI ---
HPI - Nausea/Vomiting/Diarrhea General Chief complaint: Nausea/Vomiting/Diarrhea Stated complaint: SOB,PALPATATIONS X FEW DAYS Time Seen by Provider: 03/17/23 12:59 History of Present Illness HPI Narrative: 67-year-old female with history of CAD (medical management, previous stent to LAD), COPD, PVD status post stenting, chronic hyponatremia, here for evaluation of generalized weakness and multiple medical complaints for the past several days. Patient states that she has felt worn down and tired, has not been eating or drinking her normal amount. She has felt short of breath with minimal exertion, abdominal pain, nausea and diarrhea. Productive cough. She has been experiencing some intermittent chest pains on and off for the past years, she has seen her hourly sales staff for this issue and it was thought not to be cardiac related. She is not currently complaining of any chest pain, but when it is there it is described as a pinching sensation in her chest that lasts for several seconds before resolving without intervention. Not provoked by exertion, seems to be provoked by positions. Her hourly sales staff is Dr. Thomas. Related Data Home Medications Medication Instructions Recorded Confirmed albuterol sulfate 90 mcg/actuation 1 inh inhalation QID PRN SOB 01/14/20 04/15/20 aerosol inhaler (Ventolin HFA) aspirin 81 mg tablet,delayed 81 mg PO DAILY 01/14/20 04/15/20 release clopidogrel 75 mg tablet 75 mg PO DAILY 01/14/20 04/15/20 gabapentin 300 mg capsule 300 mg PO QID 01/14/20 04/15/20 loratadine 10 mg tablet 10 mg PO DAILY 01/14/20 04/15/20 memantine 5 mg tablet 5 mg PO BID 01/14/20 04/15/20 prednisone 5 mg tablet 5 mg PO DAILY 01/14/20 04/15/20 spironolactone 25 mg tablet 25 mg PO DAILY 01/14/20 04/15/20 umeclidinium 62.5 mcg/actuation 1 inh inhalation DAILY 01/14/20 04/15/20 blister powder for inhalation Allergies Allergy/AdvReac Type Severity Reaction Status Date / Time naproxen Allergy Unknown Nausea Verified 03/17/23 13:11 Review of Systems Review of Systems: Gen: Reports weakness Eyes: Denies eye pain or visual change ENT: Denies congestion Respiratory: Reports shortness of breath CV: Reports chest pain GI: Denies abdominal pain nausea, emesis or diarrhea : denies burning, urgency, frequency or hematuria Musculoskeletal: Denies back pain or muscle pain Neuro: Denies numbness, tingling, weakness or focal weakness Skin: Denies rash Except as documented, all other systems reviewed and negative [facility] Past Medical History Medical History History of CHF (congestive heart failure) History of COPD History of coronary artery disease Surgical History Surgical History H/O neck surgery pins placed in neck H/O: hysterectomy History of cardiac catheterization History of carpal tunnel release of both wrists History of tooth extraction Family History Family History Mother Breast cancer COPD (chronic obstructive pulmonary disease) Cervical cancer Sibling Heart failure Alcoholism Multiple sclerosis Social History Social History Social History: Patient is . She lives with her male friend. She has no children. She is a current smoker. She is a full code. She does designate her 2 sisters, Marisol Beard and Luz Mario, as her healthcare surrogates but has no official POA. Smoking packs per day: 2 Smoking cigarettes per day: 40.0 Years smoked: 50 Smoking pack-years: 100.00 Smoking status: Current every day smoker Tobacco type: cigarettes Second hand tobacco smoke exposure: Yes Alcohol intake: never Substance use: never Substance use type: does not use Living arrangements: with friend(s) Additional living arrangements comments: [place]
[2023-03-17] MEDS: ASPIRIN 81 MG CHEWABLE TABLET 324 MG PO (13:26)
[2023-03-17] MEDS: IPRATROPIUM BR 0.02% INH SOLN 0.5 MG/2.5 ML VIAL INHALATION ×2 (13:31→16:04)
[2023-03-17] MEDS: LEVALBUTEROL NEB 1.25 MG/3 ML INHALATION ×2 (13:31→16:05)
[2023-03-17 13:33] LABS: Basophils Absolute Auto 0.1 K/mm3 (0.0-0.1); Basophils Percent Auto 0.6 % (0.2-1.2); Eosinophils Percent Auto 0.1 % (0-4.4); Hematocrit 43.1 % (37.0-47.0); Hemoglobin 14.3 g/dL (12.0-15.0); Immature Granulocyte Absolute 0.03 K/mm3 (0.00-0.031); Immature Granulocyte Percent A 0.3 % (0-0.5); Lymphocytes Percent Auto 14.4 % (18.3-44.2); Mean Corpuscular HGB Conc 33.2 g/dl (32-36); Mean Corpuscular Hemoglobin 28.3 pg (26-34); Mean Corpuscular Volume 85.3 fl (80-100); Mean Platelet Volume 8.8 fl (7.4-10.4); Monocytes Absolute Auto 0.7 K/mm3 (0.1-0.6); Monocytes Percent Auto 6.8 % (2.6-8.5); Neutrophils Absolute Auto 7.6 K/mm3 (1.3-6.7); Neutrophils Percent Auto 77.8 % (45.5-73.1); Platelet Count Result 425 k/mm3 (150-375); Red Blood Count 5.05 M/mm3 (4.2-5.4); Red Cell Distribution Width 14.7 % (11.5-14.5); White Blood Count 9.7 K/mm3 (4.5-10.0)
[2023-03-17 13:44] LABS: Lactic Acid Reflex 0.9 mmol/L (0.7-2.0)
[2023-03-17 13:45] LABS: Alanine Aminotransferase 15 U/L (6-35); Albumin Level 4.8 g/dL (3.5-5.1); Alkaline Phosphatase 103 U/L (38-126); Anion Gap 11 mmol/L (8-16); Aspartate Amino Transferase 21 U/L (14-36); Bilirubin,Total 0.8 mg/dL (0.2-1.3); Blood Urea Nitrogen 7 mg/dL (7-17); Calcium 9.1 mg/dL (8.4-10.2); Carbon Dioxide 23 mmol/L (22-30); Chloride 91 mmol/L (98-107); Estimated CRCL calculation 66 ml/min; Estimated Glomerular Filt Rate > 60; Glucose 86 mg/dL (65-110); Lipase 55 U/L (23-300); Potassium 3.7 mmol/L (3.4-5.0); Sodium 125 mmol/L (137-145)
[2023-03-17 13:53] LABS: Partial Thromboplastin Time 32.2 SECONDS (22.3-36.8); Prothrombin Time 13.5 Seconds (11.1-14.7)
[2023-03-17 13:56] LABS: Troponin I < 0.012 ng/mL (0.000-0.034)
[2023-03-17] MEDS: SODIUM CHLORIDE 0.9% IV 1,000 ML 999 ML IV CONT (14:21)
[2023-03-17] MEDS: ONDANSETRON INJ 4 MG/2 ML VIAL IV PUSH (14:22)
[2023-03-17 14:36] LABS: Appearance Urine Clear (Clear); Bacteria Urine None Seen /hpf; Bilirubin Urine Negative (Negative); Blood Urine Trace (Negative); Color Urine Dark Yellow (Yellow); Glucose Urine UA Negative (Negative); Ketones Urine 4+ mg/dL (Negative); Leukocyte Esterase Ur Negative LEU/UL (Negative); Need Manual Microscopic Reviewed; Nitrate Urine Negative (Negative); Protein Urine Trace mg/dL (Negative); Squamous Epithelial Cell Urine None seen /hpf (Few); WBC Urine 0-5 /hpf; pH Urine 6.5 (5.0-9.0)
[2023-03-17 14:37] LABS: Add Urine Microscopic? YES
[2023-03-17 14:47] LABS: Magnesium 1.7 mg/dL (1.6-2.3)
[2023-03-17 14:50] LABS: Influenza A QL RT-PCR Negative (Negative); Influenza B QL RT-PCR Negative (Negative); SARS-CoV-2 RNA PCR Negative (Negative)
[2023-03-17 14:57] LABS: NT Pro B Type Natriuretic Pept 824 pg/mL (19.9-100)
[2023-03-17] MEDS: LACTATED RINGERS 1,000 ML 999 ML IV CONT (15:01)
[2023-03-17 16:59] LABS: Troponin I < 0.012 ng/mL (0.000-0.034)
[2023-03-17 17:00] LABS: Sodium Urine Random 44 meq/L
[2023-03-21 16:04] LABS: Osmolality, Urine 550 mOsm/kg (50-1200)
== END 2023-03-17 17:44 | disposition home or self-care (01) ==
PROVIDERS: Emergency Medicine; Emergency Provider Physician Assistant; PCP Internal Medicine
DX: J44.1 Chronic obstructive pulmonary disease with (acute) exacerbation (principal); Z20.822 Contact with and (suspected) exposure to COVID-19; I25.10 Atherosclerotic heart disease of native coronary artery without angina pectoris; I50.9 Heart failure, unspecified; I73.9 Peripheral vascular disease, unspecified; E87.1 Hypo-osmolality and hyponatremia; F17.210 Nicotine dependence, cigarettes, uncomplicated; Z90.710 Acquired absence of both cervix and uterus; Z95.5 Presence of coronary angioplasty implant and graft; Z79.82 Long term (current) use of aspirin
CPT/HCPCS: 36415; 71045; 74177; 80053; 81001; 82948; 83605; 83690; 83735; 83880; 83935; 84300; 84484; 85025; 85610; 85730; 87040; 87636; 93005; 94640; 96361; 96374; 99284; A9270; J2405; J7030; J7120; Q9967

== ENCOUNTER 2023-08-24 17:21 | Emergency (ER) | payer OTHER, SELFPAY ==
[2023-08-24 17:22] VITALS: BP 119/66; PULSE 78; RESP 16; TEMP 36.1; O2SAT 98
--- NOTE | 2023-08-24 17:40 | ED.RECABL ---
HPI - Recheck/Abnormal Lab/Rx General Chief Complaint: Recheck/Abnormal Lab/Rx Stated Complaint: potassium 6.1 Time Seen by Provider: 08/24/23 17:39 History of Present Illness HPI narrative: Patient is a 68-year-old female with history of CAD, [address], hypertension, COPD, active smoker here with abnormal outpatient lab work. Patient states that she was at a routine office visit had routine lab work performed. They told her that her potassium was elevated at 6.1 And advised that she come into the emergency department for evaluation. She denies any prior history of renal issues or hyperkalemia. She does believe she started 1 new medication recently, is unsure of what it was for or what it is named. She denies any urinary changes, has chronic increased urinary frequency. She does note that a couple of weeks ago she fell out of bed and had significant bruising over her bilateral arms which has improved. She otherwise states that she has been feeling well and completely at her baseline. Related Data Home Medications Medication Instructions Recorded Confirmed albuterol sulfate 90 mcg/actuation 1 inh inhalation QID PRN SOB 01/14/20 04/15/20 aerosol inhaler (Ventolin HFA) aspirin 81 mg tablet,delayed 81 mg PO DAILY 01/14/20 04/15/20 release clopidogrel 75 mg tablet 75 mg PO DAILY 01/14/20 04/15/20 gabapentin 300 mg capsule 300 mg PO QID 01/14/20 04/15/20 loratadine 10 mg tablet 10 mg PO DAILY 01/14/20 04/15/20 memantine 5 mg tablet 5 mg PO BID 01/14/20 04/15/20 prednisone 5 mg tablet 5 mg PO DAILY 01/14/20 04/15/20 spironolactone 25 mg tablet 25 mg PO DAILY 01/14/20 04/15/20 umeclidinium 62.5 mcg/actuation 1 inh inhalation DAILY 01/14/20 04/15/20 blister powder for inhalation Allergies Allergy/AdvReac Type Severity Reaction Status Date / Time naproxen Allergy Unknown Nausea Verified 03/17/23 13:11 Review of Systems Review of Systems: All systems reviewed & are unremarkable except as noted in HPI and below PMFSH Past Medical History Medical History History of CHF (congestive heart failure) History of COPD History of coronary artery disease Surgical History Surgical History H/O neck surgery pins placed in neck H/O: hysterectomy History of cardiac catheterization History of carpal tunnel release of both wrists History of tooth extraction Family History Family History Mother Breast cancer COPD (chronic obstructive pulmonary disease) Cervical cancer Sibling Heart failure Alcoholism Multiple sclerosis Social History Social History Social History: Patient is . She lives with her male friend. She has no children. She is a current smoker. She is a full code. She does designate her 2 sisters, Marisol Beard and Luz Mario, as her healthcare surrogates but has no official POA. Smoking packs per day: 2 Smoking cigarettes per day: 40.0 Years smoked: 50 Smoking pack-years: 100.00 Smoking status: Current every day smoker Tobacco type: cigarettes Second hand tobacco smoke exposure: Yes Alcohol intake: never Substance use: never Substance use type: does not use Living arrangements: with friend(s) Additional living arrangements comments: Lives with friend Gender identity (if verbalized by the patient): Female Spiritual care concerns: No Exam Narrative: GENERAL: Well-appearing, well-nourished, and in no acute distress. HEAD: Normocephalic, atraumatic. EYES: PERRLA and EOMI. ENT: Nares clear. Mucous membranes moist. NECK: Supple. CHEST: Clear to auscultation. No respiratory distress. HEART: Regular rate and rhythm. Normal peripheral pulses. ABDOMEN: Soft, nontender, nondistended. No CVA tenderness. EXTR
--- NOTE | 2023-08-24 17:41 | ECG_ITS ---
Measurements Intervals [place] Rate: 74 P: 79 [place]: 171 QRS: -69 QRSD: 90 T: 59 QT: 384 QTc: 426 Interpretive Statements SINUS RHYTHM LOW QRS VOLTAGE IN PRECORDIAL LEADS [QRS DEFLECTION < 1.0 mV IN CHEST LEADS] PATTERN CONSISTENT WITH PULMONARY DISEASE POSSIBLE RIGHT VENTRICULAR CONDUCTION DELAY [RSR (QR) IN V1/V2] LEFT ANTERIOR FASCICULAR BLOCK [QRS AXIS <= -45, QR IN I, RS IN II] ABNORMAL ECG COMPARED TO ECG 03/17/2023 13:02:05 NO SIGNIFICANT CHANGES Electronically Signed On 08-25-2023 8:58:50 CDT by Fei Sullivan M.D.
[2023-08-24 18:14] LABS: Basophils Absolute Auto 0.1 K/mm3 (0.0-0.1); Basophils Percent Auto 0.8 % (0.2-1.2); Eosinophils Percent Auto 0.3 % (0-4.4); Hematocrit 37.8 % (37.0-47.0); Hemoglobin 12.1 g/dL (12.0-15.0); Immature Granulocyte Absolute 0.01 K/mm3 (0.00-0.031); Immature Granulocyte Percent A 0.2 % (0-0.5); Lymphocytes Absolute Auto 1.39 K/mm3 (0.9-3.2); Lymphocytes Percent Auto 23.4 % (18.3-44.2); Mean Corpuscular Hemoglobin 26.8 pg (26-34); Mean Corpuscular Volume 83.6 fl (80-100); Mean Platelet Volume 8.2 fl (7.4-10.4); Monocytes Absolute Auto 0.4 K/mm3 (0.1-0.6); Monocytes Percent Auto 7.1 % (2.6-8.5); Neutrophils Absolute Auto 4.1 K/mm3 (1.3-6.7); Neutrophils Percent Auto 68.2 % (45.5-73.1); Platelet Count Result 413 k/mm3 (150-375); Red Blood Count 4.52 M/mm3 (4.2-5.4); Red Cell Distribution Width 15.7 % (11.5-14.5)
[2023-08-24 18:20] LABS: Appearance Urine Clear (Clear); Bacteria Urine None Seen /hpf; Bilirubin Urine Negative (Negative); Blood Urine Negative (Negative); Color Urine Yellow (Yellow); Glucose Urine UA Negative (Negative); Ketones Urine Negative (Negative); Leukocyte Esterase Ur 1+ LEU/UL (Negative); Nitrate Urine Negative (Negative); Non Pathogenic Casts 0-2; Protein Urine Negative (Negative); RBC Urine 0-2 /hpf (0-2); Squamous Epithelial Cell Urine None seen /hpf (Few); pH Urine 7.5 (5.0-9.0)
[2023-08-24 18:23] LABS: Add Urine Microscopic? YES
[2023-08-24 18:26] LABS: Creatine Kinase 33 U/L (30-135)
[2023-08-24 18:27] LABS: Alanine Aminotransferase 22 U/L (6-35); Albumin Level 3.9 g/dL (3.5-5.1); Alkaline Phosphatase 90 U/L (38-126); Anion Gap 6 mmol/L (8-16); Aspartate Amino Transferase 31 U/L (14-36); Bilirubin,Total 0.7 mg/dL (0.2-1.3); Blood Urea Nitrogen 6 mg/dL (7-17); Calcium 8.7 mg/dL (8.4-10.2); Carbon Dioxide 26 mmol/L (22-30); Chloride 92 mmol/L (98-107); Estimated CRCL calculation 68 ml/min; Estimated Glomerular Filt Rate > 60; Glucose 98 mg/dL (65-110); Magnesium 1.8 mg/dL (1.6-2.3); Potassium 4.8 mmol/L (3.4-5.0); Sodium 124 mmol/L (137-145)
== END 2023-08-24 19:21 | disposition home or self-care (01) ==
LOC: ANHED 19:01
PROVIDERS: Emergency Provider Student in an Organized Health Care Education/Training Program; PCP Internal Medicine
DX: E87.1 Hypo-osmolality and hyponatremia (principal); R82.998 Other abnormal findings in urine; I50.9 Heart failure, unspecified; I11.0 Hypertensive heart disease with heart failure; I25.10 Atherosclerotic heart disease of native coronary artery without angina pectoris; J44.9 Chronic obstructive pulmonary disease, unspecified; F17.210 Nicotine dependence, cigarettes, uncomplicated; Z95.5 Presence of coronary angioplasty implant and graft; Z90.710 Acquired absence of both cervix and uterus; Z79.82 Long term (current) use of aspirin
CPT/HCPCS: 36415; 80053; 81001; 82550; 83735; 85025; 87077; 87086; 87186; 93005; 99283

== ENCOUNTER 2024-01-01 23:07 | Inpatient (IN) | payer OTHER, SELFPAY ==
--- NOTE | ~2024-01-01 | XR_ITS ---
Supine portable view of the abdomen Clinical history: NG tube placement Findings: NG tube side-port is at the GE junction. Further advancement into the stomach advised. Jairo l gas pattern is nonspecific. No evidence for obstruction or free air. No abnormal mass lesion or brandon cification is seen. Osseous structures are intact. Impression: NG tube side-port at the GE junction. Further advancement into the stomach advised. Reviewed, dictated and finalized at location M. IED STATISTICIAN Impression: NG tube side-port at the GE junction. Further advancement into the stomach advi sed.
--- NOTE | ~2024-01-01 | US_ITS ---
EXAMINATION: US arterial ankle brachial ind DATE: 01/02/2024 13:53 INDICATION: Peripheral arterial occlusive disease. TECHNIQUE: Segmental pressures and plethysmographic and Doppler waveforms of the brachial and lower e xtremity arteries were obtained. COMPARISON: None. FINDINGS: Right and left brachial artery pressures of 130 mm Hg and 140 mm Hg, respectively, are concordant (no rmal difference <= 30 mmHg). The right ankle-brachial index (KAM) is 0.61 (normal >= 0.9-1.0). The right great toe-brachial index (TBI) is 0.39 (normal >= 0.65). Arterial Doppler waveforms are biphasic with brisk systolic upstrokes at both right posterior tibial and dorsalis pedis arteries. The left KAM is 0.54. The left TBI is 0.34. Arterial Doppler waveforms are biphasic with brisk systol ic upstrokes at both left posterior tibial and dorsalis pedis arteries. IMPRESSION: 1. Arterial occlusive disease to the bilateral lower limbs with moderately decreased bilateral ABIs a nd TBIs. Reviewed, dictated and finalized at location A. TRICAL TESTS SUPERVISOR IMPRESSION: 1. Arterial occlusive disease to the bilateral lower limbs with moderately decr eased bilateral ABIs and TBIs.
--- NOTE | ~2024-01-01 | XR_ITS ---
Portable chest x-ray Comparison: 03/17/2023 Clinical History: Shortness of breath Findings: Mild interstitial prominence is present, nonspecific. Stable calcified left basilar granul edwina. Cardiomediastinal silhouette is stable. Bones and soft tissues are unremarkable. Impression: No acute abnormality. Probable COPD. Reviewed, dictated and finalized at [facility]. ONER CLASSIFICATION INTERVIEWER Impression: No acute abnormality. Probable COPD.
--- NOTE | ~2024-01-01 | XR_ITS ---
EXAMINATION: XR abdomen/kub 1V DATE: 01/02/2024 10:06 INDICATION: Respiratory failure TECHNIQUE: A supine view of the abdomen was obtained. COMPARISON: None. FINDINGS: Nasal gastric tube tip in the proximal body of the stomach with proximal side-port in the distal esop hagus. No dilated loops of gas-filled bowel. Calcified nodules in the left lower lung and in the sple en consistent with old granulomatous disease. IMPRESSION: 1. Gastric tube tip in the stomach. Recommend advancement by 6 cm. Reviewed, dictated and finalized at location A. NE PROPULSION TECHNICIAN
--- NOTE | ~2024-01-01 | XR_ITS ---
Portable chest x-ray Comparison: 01/02/2024 Clinical History: Line placement Findings: Endotracheal tube and right IJ line are in satisfactory positions. NG tube side-port is pr obably still to distal esophagus. Stable COPD pattern and calcified granulomas. Cardiomediastinal si lhouette is stable. Bones and soft tissues are unremarkable. Impression: Support tubes in place, as above. Further advancement of NG tube advised. Probable COPD. Reviewed, dictated and finalized at location . ING MACHINE OPERATOR Impression: Support tubes in place, as above. Further advancement of NG tube advised. Probable COPD.
--- NOTE | ~2024-01-01 | XR_ITS ---
Portable chest x-ray Comparison: 01/01/2024 Clinical History: Tube placement Findings: Endotracheal tube is in place. NG tube side-port is at the distal esophagus. Calcified gra nulomas are noted. No acute pulmonary abnormality seen. Probable COPD pattern. Cardiomediastinal silh ouette is stable. Bones and soft tissues are unremarkable. Impression: ET tube in satisfactory position. NG tube side-port at the distal esophagus. Further advancement into the stomach advised. COPD with evidence of prior granulomatous disease. Reviewed, dictated and finalized at location M. ATION PROGRAM ASSOCIATE Impression: ET tube in satisfactory position. NG tube side-port at the distal esophagus. Further advancement into the stomach advised. COPD with evidence of prior granulomatous disease.
--- NOTE | ~2024-01-01 | CT_ITS ---
EXAMINATION: CTA chest PE protocol DATE: 01/02/2024 12:59 INDICATION: Hypoxia TECHNIQUE: Computed tomography angiography (CTA) of the chest was performed with 100 mL Omnipaque-350 intravenous contrast timed to evaluate the pulmonary arteries. Coronal maximum intensity projection 3D-reconstructions were created by the technologist. The dose-length product (DLP) was 530.94 mGy-cm. Automated exposure control and iterative reconstruction technique were employed. COMPARISON: 04/15/2020 FINDINGS: The pulmonary arteries are well-opacified. No pulmonary embolism is identified. There are d ependent airspace opacities of the lower lobes, left greater than right. There are tree-in-bud and no dular opacities with an upper lung zone predominance. No pneumothorax identified. There are small ple ural effusions the heart size is normal. There is mild mediastinal and bilateral hilar lymphadenopath y. Calcified coronary artery atherosclerosis is noted. Punctate calcifications in an otherwise normal spleen likely represent healed granulomatous disease. A right internal jugular catheter ends in the distal superior vena cava. The endotracheal tube is in adequate position. The nasogastric tube ends i n the stomach. There is moderate thoracic spondylosis. IMPRESSION: 1. No pulmonary embolism identified. 2. Airspace opacities of the lower lobes as well as tree-in-bud and nodular opacities of the upper lo bes, likely pneumonia. 3. Mediastinal and bilateral hilar lymphadenopathy, likely reactive Reviewed, dictated and finalized at location B. AL SCIENCES INSTRUCTOR IMPRESSION: 1. No pulmonary embolism identified. 2. Airspace opacities of the lower lobes as well as tree-in-bud and nodular opa cities of the upper lobes, likely pneumonia. 3. Mediastinal and bilateral hilar lymphadenopathy, likely reactive
--- NOTE | ~2024-01-01 | XR_ITS ---
Portable chest x-ray Comparison: 01/04/2024 Clinical History: Respiratory failure Findings: Right IJ line remains in place. COPD pattern present with possible minimal central congest candis change. Cardiomediastinal silhouette is stable. Bones and soft tissues are unremarkable. Impression: COPD and possible minimal central congestive change. Support line, as above. Reviewed, dictated and finalized at location . Impression: COPD and possible minimal central congestive change. Support line, as above.
--- NOTE | ~2024-01-01 | XR_ITS ---
Portable chest x-ray Comparison: 01/02/2024 Clinical History: Respiratory failure Findings: Endotracheal tube, NG tube, and right-sided Mediport in place. Possible COPD. Lungs are ot herwise clear. Cardiomediastinal silhouette is stable. Bones and soft tissues are unremarkable. Impression: Support tubes, as above. Suspected COPD. Reviewed, dictated and finalized at location . YMAN Impression: Support tubes, as above. Suspected COPD.
--- NOTE | ~2024-01-01 | XR_ITS ---
Portable chest x-ray Comparison: 01/03/2024 Clinical History: Respiratory failure Findings: Endotracheal tube, NG tube, and right IJ line are in place. Probable COPD pattern of the l ungs. Cardiomediastinal silhouette is stable. Bones and soft tissues are unremarkable. Impression: Support tubes, as above. Suspected COPD. Reviewed, dictated and finalized at location . CHEF Impression: Support tubes, as above. Suspected COPD.
--- NOTE | ~2024-01-01 | XR_ITS ---
Portable chest x-ray Comparison: 01/05/2024 Clinical History: Respiratory failure Findings: Right IJ line is in place. Probable COPD pattern of the lungs. Questionable mild interstit ial prominence. Calcified left basilar granuloma unchanged. Cardiomediastinal silhouette is stable. Bones and soft tissues are unremarkable. Impression: COPD. Questionable minimal interstitial edema. Stable right IJ line. Reviewed, dictated and finalized at location . BOAT OPERATOR Impression: COPD. Questionable minimal interstitial edema. Stable right IJ line.
[2024-01-01 23:06] VITALS: BP 157/80; PULSE 109; RESP 20; TEMP 36.8; O2SAT 95
[2024-01-01 23:16] VITALS: O2SAT 94
--- NOTE | 2024-01-01 23:16 | ECG_ITS ---
Measurements Intervals [place] Rate: 107 P: 79 ID: [id number] QRS: -74 QRSD: 92 T: 73 QT: 347 QTc: 465 Interpretive Statements SINUS TACHYCARDIA WITH OCCASIONAL ECTOPIC PREMATURE COMPLEXES BASELINE ARTIFACT POSSIBLE LEFT ATRIAL ENLARGEMENT [-0.1mV P WAVE IN V1/V2] LOW QRS VOLTAGE IN PRECORDIAL LEADS [QRS DEFLECTION < 1.0 mV IN CHEST LEADS] PATTERN CONSISTENT WITH PULMONARY DISEASE LEFT ANTERIOR FASCICULAR BLOCK [QRS AXIS <= -45, QR IN I, RS IN II] ABNORMAL ECG COMPARED TO ECG 08/24/2023 18:06:27 SINUS TACHYCARDIA NOW PRESENT Electronically Signed On 01-02-2024 18:22:19 BOND TRADER by Reynaldo Tillman M.D.
[2024-01-01 23:25] VITALS: PULSE 107; RESP 20
[2024-01-01 23:26] VITALS: O2SAT 94
--- NOTE | 2024-01-01 23:26 | ED.GENADULT ---
HPI - General Adult General Chief complaint: Shortness of Breath/Dyspnea Stated complaint: sob Time Seen by Provider: 01/01/24 23:16 History of Present Illness HPI narrative: 68-year-old female present to the emergency department for evaluation of worsening shortness of breath over the last 6 days. Patient does have a history of COPD and up until today patient continued to smoke. Patient states she was attempting to use her albuterol inhaler at home but was unable to inhale. Upon arrival to the emergency department patient was and respiratory distress. Related Data Home Medications Medication Instructions Recorded Confirmed albuterol sulfate 90 mcg/actuation 1 inh inhalation QID PRN SOB 01/14/20 04/15/20 aerosol inhaler (Ventolin HFA) aspirin 81 mg tablet,delayed 81 mg PO DAILY 01/14/20 04/15/20 release clopidogrel 75 mg tablet 75 mg PO DAILY 01/14/20 04/15/20 gabapentin 300 mg capsule 300 mg PO QID 01/14/20 04/15/20 loratadine 10 mg tablet 10 mg PO DAILY 01/14/20 04/15/20 memantine 5 mg tablet 5 mg PO BID 01/14/20 04/15/20 prednisone 5 mg tablet 5 mg PO DAILY 01/14/20 04/15/20 spironolactone 25 mg tablet 25 mg PO DAILY 01/14/20 04/15/20 umeclidinium 62.5 mcg/actuation 1 inh inhalation DAILY 01/14/20 04/15/20 blister powder for inhalation Allergies Allergy/AdvReac Type Severity Reaction Status Date / Time naproxen Allergy Unknown Nausea Verified 01/01/24 23:18 Review of Systems Review of Systems: All systems reviewed & are unremarkable except as noted in HPI and below PMFSH Past Medical History Medical History History of CHF (congestive heart failure) History of COPD History of coronary artery disease Surgical History Surgical History H/O neck surgery pins placed in neck H/O: hysterectomy History of cardiac catheterization History of carpal tunnel release of both wrists History of tooth extraction Family History Family History Mother Breast cancer COPD (chronic obstructive pulmonary disease) Cervical cancer Sibling Heart failure Alcoholism Multiple sclerosis Social History Social History Social History: Patient is . She lives with her male friend. She has no children. She is a current smoker. She is a full code. She does designate her 2 sisters, Marisol Beard and Luz Mario, as her healthcare surrogates but has no official POA. Smoking packs per day: 2 Smoking cigarettes per day: 40.0 Years smoked: 50 Smoking pack-years: 100.00 Smoking status: Current every day smoker Tobacco type: cigarettes Second hand tobacco smoke exposure: Yes Alcohol intake: never Substance use: never Substance use type: does not use Living arrangements: with friend(s) Additional living arrangements comments: Lives with friend Gender identity (if verbalized by the patient): Female Spiritual care concerns: No Exam Narrative: APPEARANCE: Uncomfortable. HEAD: normocephalic, atraumatic. EYES: PERRLA/EOMI, conjunctivae clear. NOSE: Normal no drainage EARS:TMS clear with good light reflex. THROAT: Pharynx clear, no exudate. NECK: Supple. No adenopathy, no masses. RESPIRATORY: Rhonchi bilaterally with expiratory wheeze CARDIOVASCULAR: Regular rate and rhythm without murmurs rubs or gallops. ABDOMINAL: Soft, nontender, nondistended, normal bowel sounds MUSCULOSKELETAL: Moves all extremities. Strength/ROM intact, No edema, No calf tenderness. NEURO: Alert. Cranial nerves II through XII intact. Grossly intact SKIN: Warm, dry. Normal Color Course Course Emergency Course: 68-year-old female presenting ED for evaluation worsening shortness of breath. Patient did receive a continuous albuterol neb and she said this did improve he
[2024-01-01 23:33] VITALS: PULSE 110; RESP 20
[2024-01-01 23:45] VITALS: PULSE 144; RESP 26; O2SAT 100
[2024-01-01 23:55] LABS: Basophils Percent Auto 0.3 % (0.2-1.2); Eosinophils Percent Auto 0.2 % (0-4.4); Hemoglobin 12.8 g/dL (12.0-15.0); Immature Granulocyte Absolute 0.05 K/mm3 (0.00-0.031); Immature Granulocyte Percent A 0.4 % (0-0.5); Lymphocytes Absolute Auto 1.39 K/mm3 (0.9-3.2); Lymphocytes Percent Auto 11.3 % (18.3-44.2); Mean Corpuscular Hemoglobin 27.8 pg (26-34); Mean Platelet Volume 9.3 fl (7.4-10.4); Monocytes Percent Auto 7.8 % (2.6-8.5); Neutrophils Absolute Auto 9.8 K/mm3 (1.3-6.7); Platelet Count Result 329 k/mm3 (150-375); Red Cell Distribution Width 14.2 % (11.5-14.5); White Blood Count 12.3 K/mm3 (4.5-10.0)
[2024-01-02] VITALS (74 sets, daily range): BP systolic 78–149; BP diastolic 57–90; PULSE 13–153; RESP 12–34; TEMP 35.5–37.6; O2SAT 90–100; BMI 22.6
--- NOTE | 2024-01-02 | ECHO_ITS ---
Patient Info Name: Latoya Barlow Age: 68 years : 1955 Gender: Female Ht: 64 in Wt: 132 lbs BSA: 1.65 m2 HR: 74 bpm BP: 126 / 75 mmHg Heart Rhythm: Sinus Rhythm Technical Quality: Fair Exam Date: 01/02/2024 2:29 PM Exam Location: Echo Lab Patient Status: Inpatient Admit Date: 01/02/2024 Staff Ordering Physician: Krish Sweeney MD Program Architect: Attending Provider: Eddi Delgado MD Exam Type: CA echo doppler color flow Study Info Indications I48.0 - Paroxysmal atrial fibrillation Complete two-dimensional, color flow and Doppler transthoracic echocardiogram is performed. Summary 1. Complete two-dimensional, color flow and Doppler transthoracic echocardiogram is performed. 2. Left ventricular chamber dimension is normal. 3. Left ventricular systolic function is normal, estimated at 60-65%. 4. The left ventricular diastolic function is grade I diastolic dysfunction. 5. Right ventricular systolic function is normal. 6. Left atrial chamber dimension is mildly enlarged. 7. There is mild aortic valve regurgitation. 8. There is mild mitral valve regurgitation. 9. There is mild tricuspid valve regurgitation. Left Ventricle Left ventricular chamber dimension is normal. Left ventricular systolic function is normal, estimated at 60-65%. There is no increased left ventricular wall thickness. The left ventricular diastolic function is grade I diastolic dysfunction. Right Ventricle Right ventricular chamber dimension is normal. Right ventricular systolic function is normal. Left Atria Left atrial chamber dimension is mildly enlarged. Right Atria Right atrial chamber dimension is normal. Atrial Septum Intact interatrial septum visualized by color flow imaging. Aortic Valve The aortic valve is trileaflet. There is no aortic valve stenosis. There is mild aortic valve regurgitation. There is mild aortic valve calcification. Pulmonic Valve The pulmonic valve is not well visualized. Mitral Valve There is mild mitral valve regurgitation. The mitral valve annulus is mildly calcified. Tricuspid Valve There is mild tricuspid valve regurgitation. Pericardium/Pleural There is no pericardial effusion. Inferior Vena Cava Dilated inferior vena cava with <50% collapse upon inspiration consistent with elevated right atrial pressure, 15 mmHg. Aorta The aortic root size at the sinus of Valsalva is normal. Left Ventricular Outflow Tract Name Value Normal LVOT 2D LVOT Diameter 2.0 cm LVOT Doppler LVOT Peak Gradient 5 mmHg LVOT Mean Gradient 2 mmHg LVOT VTI 27 cm LVOT VTI/AV VTI Ratio 0.9 LVOT Stroke Volume 82 ml LVOT CO 5.6 l/min LVOT CI 3.4 l/min/m2 Pulmonic Valve Name Value Normal PV Doppler PV Peak Gradient
[2024-01-02 00:11] LABS: Alanine Aminotransferase 14 U/L (6-35); Albumin Level 3.8 g/dL (3.5-5.1); Alkaline Phosphatase 99 U/L (38-126); Anion Gap 8 mmol/L (8-16); Aspartate Amino Transferase 23 U/L (14-36); Bilirubin,Total 1.1 mg/dL (0.2-1.3); Blood Urea Nitrogen 13 mg/dL (7-17); Carbon Dioxide 31 mmol/L (22-30); Chloride 88 mmol/L (98-107); Estimated CRCL calculation 59 ml/min; Estimated Glomerular Filt Rate > 60; Glucose 102 mg/dL (65-110); Potassium 3.6 mmol/L (3.4-5.0); Sodium 127 mmol/L (137-145)
--- NOTE | 2024-01-02 00:26 | ECG_ITS ---
Measurements Intervals [place] Rate: 121 P: CT: 0 QRS: -61 QRSD: 78 T: 58 QT: 305 QTc: 434 Interpretive Statements ATRIAL FIBRILLATION WITH RAPID VENTRICULAR RESPONSE PATTERN CONSISTENT WITH PULMONARY DISEASE LEFT ANTERIOR FASCICULAR BLOCK [QRS AXIS <= -45, QR IN I, RS IN II] MINIMAL ST DEPRESSION [0.025+ mV ST DEPRESSION] ABNORMAL ECG COMPARED TO ECG 01/01/2024 23:21:08 ATRIAL FIBRILLATION NOW PRESENT ST (T WAVE) DEVIATION NOW PRESENT Electronically Signed On 01-02-2024 18:22:51 HOOP DRIVING MACHINE OPERATOR by Reynaldo Tillman M.D.
[2024-01-02 00:32] LABS: Influenza A QL RT-PCR Negative (Negative); Influenza B QL RT-PCR Negative (Negative); RSV RNA, RT-PCR Negative (Negative); SARS-CoV-2 RNA PCR Negative (Negative)
--- NOTE | 2024-01-02 00:38 | PM.IMHP ---
H&P: HPI History of Present Illness Date/Time: 01/02/24 00:38 Chief Complaint: SHORTNESS OF BREATH Narrative: This is a 68-year-old female with past medical history significant for COPD/ emphysema, coronary artery disease, tobacco dependence. Patient is still a current everyday smoker of half a pack of cigarettes a day although states that has not been able to smoke a cigarette in the last 2 days due to worsening shortness of breath, which has been present now for the last week or so, patient denies any fevers, rigors, chills, has had poor appetite, poor per orally intake, denies any nausea, vomiting, abdominal pain. In emergency room patient was found to have atrial fibrillation with rapid ventricular response which responded to diltiazem IV push she was placed on supplemental oxygen by nasal cannula as well received nebulizer treatment. while in the emergency room patient had episode in which she rapidly deteriorated requiring intubation and mechanical ventilation. Preliminary workup was significant for sodium of 127 chloride 88 chest x-ray was reported as: Portable chest x-ray Comparison: 03/17/2023 Clinical History: Shortness of breath Findings:? Mild interstitial prominence is present, nonspecific. Stable calcified left basilar granuloma.? Cardiomediastinal silhouette is stable. Bones and soft tissues are unremarkable. ? Impression: ? No acute abnormality. Probable COPD. patient is been admitted for further evaluation management and treatment Review of Systems Review of Systems: shortness of breath, cough Constitutional: Constitutional: Denies chills, Reports fatigue, Denies fever(s), Reports lethargy, Denies night sweats, Reports poor appetite and Reports weakness Eyes: Eyes: Denies change in vision ENT: Denies dysphagia, Denies vertigo, Denies dizziness and Denies odynophagia Cardiovascular: Cardiovascular: Denies chest pain, Reports rapid heart rate, Denies radiating jaw, neck or arm pain and Denies palpitations Respiratory: Respiratory: Reports chest congestion, Reports cough, Reports dyspnea, Reports dyspnea on exertion and Reports wheezing Gastrointestinal: Gastrointestinal: Denies abdominal pain, Denies nausea and Denies vomiting Genitourinary: Genitourinary: Denies dysuria Musculoskeletal: Musculoskeletal: Reports back pain and Denies arthralgias Integumentary/Breasts: Skin/Breast: Denies rash Neurologic: Denies focal weakness and Denies Sensory deficit (Neuro) Psychiatric: Psychiatric: Reports no additional psychiatric complaints and Reports as per HPI Endocrine: Endocrine: Denies cold intolerance, Denies flushing, Denies heat intolerance, Denies polyphagia, Denies polydipsia and Denies palpitations Hematologic/Lymphatic: Hematologic/Lymphatic: Reports no additional hematologic/lymphatic complaints and Reports as per HPI Allergic/Immunologic: Allergic/Immunologic: Reports no additional allergic/immunologic complaints and Reports as per HPI [facility] Past Medical History Medical History (Updated 01/02/24 @ 09:29 by Krish Sweeney MD) Atrial fibrillation CAD (coronary artery disease) CHF (congestive heart failure) History of CHF (congestive heart failure) History of COPD History of coronary artery disease Tobacco abuse Surgical History Surgical History H/O neck surgery pins placed in neck H/O: hysterectomy History of cardiac catheterization History of carpal tunnel release of both wrists History of tooth extraction Family History Family History Mother Breast cancer COPD (chronic obstructive pulmonary disease) Cervical cancer Sibling Heart failure Alcoholism Multiple sclerosis Social History Social History Social History: Patient is . She lives with her male friend. She has no children.
--- NOTE | 2024-01-02 01:37 | PC.NURSE ---
0130 This RN obtained blood cultures and went to send them in tube system. Patient began to yell out. This RN and another went to check patient and patient was yelling she could not breathe. ERP arrived at bedside and gave orders to place patient on bipap. ERP went to place orders, and this RN and another were still in room and patient became minimally responsive and ERP immediately notified. Patient then was only responsive to sternal rub. ERP decided to intubate. Respiratory called.
--- NOTE | 2024-01-02 01:41 | PC.NURSE ---
0135 VORB 100mg succs, and 20mg of etomidate for RSI for intubation. 0135 ERP intubated patient with 7.5 tube, secured at lip at 21. Positive color change, equal chest rise and fall, bilateral breath sounds. 0140 OG placed and secured at 55 at lip to tube. 0143 VORB to give another bolus. Respiratory in room placing patient on vent.
--- NOTE | 2024-01-02 01:54 | PC.NURSE ---
0151 VORB to give 2mg versed IVP.
--- NOTE | 2024-01-02 02:11 | ECG_ITS ---
Measurements Intervals [place] Rate: 98 P: 80 [place]: 161 QRS: -73 QRSD: 71 T: 59 QT: 361 QTc: 461 Interpretive Statements SINUS RHYTHM POSSIBLE RIGHT ATRIAL ENLARGEMENT [0.25mV P-WAVE] LEFT ATRIAL ENLARGEMENT [-0.15mV P-WAVE IN V1/V2] LEFT AXIS DEVIATION [QRS AXIS < -30] PATTERN CONSISTENT WITH PULMONARY DISEASE ABNORMAL ECG COMPARED TO ECG 01/02/2024 00:26:42 SINUS RHYTHM NOW PRESENT LEFT-AXIS DEVIATION NOW PRESENT Electronically Signed On 01-02-2024 18:23:05 BUHR DRESSER by Reynaldo Tillman M.D.
[2024-01-02 02:33] LABS: Alveolar/Arterial O2 Gradient 314.6 mmHg; Base Excess ABG -3.3 mEq/l (+/-2.0); Carboxyhemoglobin 0.5 % THb (0-2.0); Fractional Inspired Oxygen 100 %; HCO3 ABG 21.4 mEq/l (22.0-26.0); Methemoglobin ABG 0.5 %THb (0-1.5); Oxygen Content ABG 18.7 %vol (16.0-22.0); Oxygen Saturation ABG 99.8 % (95.0-100.0); Oxyhemoglobin 98.1 % THb (90.0-100.0); PCO2 ABG 37.5 mmHg (35.0-45.0); PO2 ABG 360.9 mmHg (80.0-100.0); PO2 FiO2 Ratio Arterial Blood 3.61 %; Reduced Hemoglobin 0.9 %THb (0-5.0); Site Drawn LEFT RADIAL; Total Hemoglobin 12.9 g/dL (12.0-18.0); pH ABG 7.375 (7.350-7.450)
[2024-01-02 02:34] LABS: Arterial Blood Gas PEEP 8 cmH2O; Arterial Blood Gas Tidal Volume 450 ml; Arterial Blood Gas Vent Mode CMV; Arterial Blood Gas Ventilator rate 12 /MIN; Device VENTILATOR; Modified Allen's Test Pass
--- NOTE | 2024-01-02 03:12 | PC.NURSE ---
VORB to prepare for central line placement d/t bps. VORB to give 2mg of versed IVP. 0315 2mg of versed given IVP.
--- NOTE | 2024-01-02 03:35 | PC.NURSE ---
0335 VORB to give 2mg versed IVP, given at 0335.
--- NOTE | 2024-01-02 04:15 | PC.NURSE ---
This patient, Latoya Barlow, was admitted to Intensive Care Unit-5. Patient/family oriented to hospital policies and general routines including ID bracelet, bed and alarms, visiting hours, pain management, procedures, bathroom and other care routines, personal items, smoking policy, room service/diet, and visiting hours. Information on how to activate the Rapid Response Team has been discussed. Patient/Family are encouraged to report perceived risks to care and to ask questions if they do not understand what they are told or what they should do.
[2024-01-02 04:57] LABS: Basophils Absolute Auto 0.1 K/mm3 (0.0-0.1); Basophils Percent Auto 0.3 % (0.2-1.2); Eosinophils Absolute Auto 0.2 K/mm3 (0-0.3); Eosinophils Percent Auto 1.2 % (0-4.4); Hematocrit 36.7 % (37.0-47.0); Hemoglobin 11.9 g/dL (12.0-15.0); Immature Granulocyte Absolute 0.12 K/mm3 (0.00-0.031); Immature Granulocyte Percent A 0.8 % (0-0.5); Lymphocytes Absolute Auto 0.22 K/mm3 (0.9-3.2); Lymphocytes Percent Auto 1.4 % (18.3-44.2); Mean Corpuscular HGB Conc 32.4 g/dl (32-36); Mean Corpuscular Hemoglobin 28.5 pg (26-34); Mean Platelet Volume 9.3 fl (7.4-10.4); Monocytes Absolute Auto 0.5 K/mm3 (0.1-0.6); Neutrophils Absolute Auto 14.5 K/mm3 (1.3-6.7); Neutrophils Percent Auto 93.3 % (45.5-73.1); Platelet Count Result 309 k/mm3 (150-375); Red Blood Count 4.17 M/mm3 (4.2-5.4); Red Cell Distribution Width 14.4 % (11.5-14.5); White Blood Count 15.6 K/mm3 (4.5-10.0)
[2024-01-02 05:12] LABS: Anion Gap 3 mmol/L (8-16); Blood Urea Nitrogen 12 mg/dL (7-17); Calcium 7.6 mg/dL (8.4-10.2); Carbon Dioxide 28 mmol/L (22-30); Chloride 95 mmol/L (98-107); Estimated CRCL calculation 68 ml/min; Estimated Glomerular Filt Rate > 60; Glucose 203 mg/dL (65-110); Magnesium 1.7 mg/dL (1.6-2.3); Potassium 3.5 mmol/L (3.4-5.0); Sodium 126 mmol/L (137-145); Triglycerides 67 mg/dL (<150)
[2024-01-02 06:52] LABS: MRSA (PCR) NOT DETECTED (NOT DETECTE)
[2024-01-02 08:54] LABS: Procalcitonin 0.2 ng/mL
--- NOTE | 2024-01-02 09:21 | WPDCNINT ---
Assessment and Plan Assessment and plan (1) Acute hypoxic respiratory failure: Code(s): J96.01 - Acute respiratory failure with hypoxia Status: Acute Assessment and Plan: Acute Respiratory failure secondary to COPD exacerbation Patient now intubated and sedated Continue full mechanical ventilation support to prevent hypoxemia/hypercarbia and end organ damage. ABG and vent settings reviewed Chest x-ray shows COPD changes and does not show any obvious infiltrates is above pneumonia. Her procalcitonin level is low Low tidal volume ventilation strategy to prevent volutrauma Continue steroids,Bronchodilators Patient was started on empiric antibiotics which will be continued and deescalate once cultures also back (2) Chronic obstructive pulmonary disease with acute exacerbation: Code(s): J44.1 - Chronic obstructive pulmonary disease with (acute) exacerbation Status: Acute Assessment and Plan: See above (3) CAD (coronary artery disease): Qualifiers: Associated angina: without angina Coronary Disease-Associated Artery/Lesion type: [place] artery [place] vs. transplanted heart: [place] heart Qualified Code(s): I25.10 - Atherosclerotic heart disease of [place] coronary artery without angina pectoris Code(s): I25.10 - Atherosclerotic heart disease of [place] coronary artery without angina pectoris Status: Acute Assessment and Plan: History of coronary disease status post stenting. No details are known at this time Continue aspirin Plavix Patient not on GILDARDO-inhibitor beta-shu or statin as an outpatient EKG reviewed and shows sinus rhythm. Patient did not report any chest pain the ER Check echocardiogram Check serial troponin (4) CHF (congestive heart failure): Qualifiers: Heart failure chronicity: chronic Heart failure type: unspecified Qualified Code(s): I50.9 - Heart failure, unspecified Code(s): I50.9 - Heart failure, unspecified Status: Acute Assessment and Plan: Mention of CHF in her records from [facility]. Hold further fluids Check BNP and echocardiogram (5) Paroxysmal atrial fibrillation: Code(s): I48.0 - Paroxysmal atrial fibrillation Status: Acute Assessment and Plan: It appears the patient went to AFib in the past during COPD exacerbation and again presented with AFib which now has converted back to sinus rhythm after initiation of amiodarone intubation and sedation I will for further amiodarone dosing. Continue aspirin Plavix Hold anticoagulation as patient is sister reports the patient complained of blood in her stool Check echo (6) Tobacco abuse: Code(s): Z72.0 - Tobacco use Status: Acute Assessment and Plan: Patient is a heavy smoker and continues to smoke heavily. Will behavioral school counselors patient once extubated (7) Electrolyte abnormality: Code(s): E87.8 - Other disorders of electrolyte and fluid balance, not elsewhere classified Status: Acute Assessment and Plan: Replace low potassium and magnesium Plan DVT prophylaxis -Lovenox Stress ulcer prophylaxis -PPI Nutrition -start Tube Feeds Code Status - Full Code. I spoke to and updated patient's sister and at bedside answered all their questions. I explained them the patient has COPD exacerbation AFib and respiratory failure Total Critical Care Time - 40 minutes Due to a high probability of clinically significant, life threatening deterioration, the patient required my highest level of preparedness to intervene emergently and I personally spent this critical care time directly and personally managing the patient. This critical care time included obtaining a history; examining the patient; pulse oximetry; ordering and review of studies; arranging urgent treatment with development of a management plan; evaluation of patient's response to treatment; frequent reassessment; and discussions with o
[2024-01-02 09:53] LABS: NT Pro B Type Natriuretic Pept 2630 pg/mL (19.9-100)
[2024-01-02 10:02] LABS: Troponin I 0.049 ng/mL (0.000-0.034)
--- NOTE | 2024-01-02 11:10 | PM.IMPN ---
Progress Note: A&P Assessment and Plan (1) Acute hypoxic respiratory failure: Code(s): J96.01 - Acute respiratory failure with hypoxia Status: Acute Assessment and Plan: Patient presents with acute respiratory failure secondary to COPD exacerbation. Patient had AFib/RVR treated with diltiazem but had rapid decline in her breathing with concern for mucous plug requiring emergent intubation. Suctioned mucous after intubation. CXR showing no acute abnormalities but probable COPD ABG on MV 7.37/37/361. COVID, influenza, and RSV PCR negative. MRSA nasal swab negative. Patient now intubated and sedated Probably related to COPD exacerbation. PNA unlikely with clear CXR and low procalcitonin. Consider PE with sudden onset change, clear CXR and AFib Continue steroids and bronchodilators. Patient also started on empiric antibiotics (plan to switch to Rocephin and Azithro) (2) Paroxysmal atrial fibrillation: Code(s): I48.0 - Paroxysmal atrial fibrillation Status: Acute Assessment and Plan: Patient with AFib/RVR in ED treated with diltiazem. First EKG showing sinus mechanism and no change from prior. 2nd EKG showing AFib with RVR (121) with ST depression Amiodarone added and patietn converted to NSR over night. She has hx of pAFib and is not on anticoagulation due to hx of rectal bleeding. No anticoagulation started here. Continue aspirin Plavix Check echo (3) Chronic obstructive pulmonary disease with acute exacerbation: Code(s): J44.1 - Chronic obstructive pulmonary disease with (acute) exacerbation Status: Acute Assessment and Plan: As above Resume inhalers when more stable (4) CAD (coronary artery disease): Qualifiers: Coronary Disease-Associated Artery/Lesion type: [place] artery [place] vs. transplanted heart: [place] heart Associated angina: without angina Qualified Code(s): I25.10 - Atherosclerotic heart disease of [place] coronary artery without angina pectoris Code(s): I25.10 - Atherosclerotic heart disease of [place] coronary artery without angina pectoris Status: Acute Assessment and Plan: History of coronary disease status post stenting. No details are known at this time Continue aspirin and Plavix Patient not on GILDARDO-inhibitor, beta-shu or statin as an outpatient EKG reviewed as above Troponin elevated 0.049. Echo ordered. Trend Trop (5) CHF (congestive heart failure): Qualifiers: Heart failure type: unspecified Heart failure chronicity: chronic Qualified Code(s): I50.9 - Heart failure, unspecified Code(s): I50.9 - Heart failure, unspecified Status: Acute Assessment and Plan: Mention of CHF in her records from [facility]. Holding further fluids. BNP 2630. CXR was clear and clinically not appears fluid overloaded. Echo ordered. Hold lasix (6) Tobacco abuse: Code(s): Z72.0 - Tobacco use Status: Acute Assessment and Plan: Patient is a heavy smoker and continues to smoke heavily. Will counselor manager patient once extubated (7) Electrolyte abnormality: Code(s): E87.8 - Other disorders of electrolyte and fluid balance, not elsewhere classified Status: Acute Assessment and Plan: Monitor electrolytes and replace as needed Plan DVT prophylaxis -Lovenox Stress ulcer prophylaxis -PPI Nutrition -start Tube Feeds Code Status - Full Code. Subjective Date/time seen: 01/02/24 11:10 Interval history: 68yo female with COPD, CAD, CHF and ongoing tobacco use here for shortness of breath. Patient is sedated and intubated. Noted to have AFib. Was on Amiodarone but this has been stopped. Review of Systems Review of Systems: ROS unobtainable: Yes unobtainable due to endotracheal tube Exam Narrative: AF 99.1 131/76 67 20 100% MV Gen - intubated and sedated HEENT - OGT, ETT secured. OGT to suction. N
[2024-01-02 16:26] LABS: Troponin I 0.035 ng/mL (0.000-0.034)
[2024-01-03] VITALS (50 sets, daily range): BP systolic 91–140; BP diastolic 62–94; PULSE 5–108; RESP 12–22; TEMP 36.6–37.1; O2SAT 93–100
[2024-01-03 05:34] LABS: Alveolar/Arterial O2 Gradient 154.9 mmHg; Base Excess ABG 4.7 mEq/l (+/-2.0); Carboxyhemoglobin 0.3 % THb (0-2.0); Fractional Inspired Oxygen 40 %; HCO3 ABG 28.4 mEq/l (22.0-26.0); Methemoglobin ABG 0.3 %THb (0-1.5); Oxygen Content ABG 16.9 %vol (16.0-22.0); Oxygen Saturation ABG 97.1 % (95.0-100.0); Oxyhemoglobin 95.6 % THb (90.0-100.0); PCO2 ABG 38.6 mmHg (35.0-45.0); PO2 ABG 85.9 mmHg (80.0-100.0); PO2 FiO2 Ratio Arterial Blood 2.15 %; Reduced Hemoglobin 3.8 %THb (0-5.0); Total Hemoglobin 12.5 g/dL (12.0-18.0); pH ABG 7.484 (7.350-7.450)
[2024-01-03 05:35] LABS: Device VENTILATOR; Modified Allen's Test Pass; Site Drawn RIGHT RADIAL
[2024-01-03 05:36] LABS: Arterial Blood Gas PEEP 5 cmH2O; Arterial Blood Gas Vent Mode CMV; Arterial Blood Gas Ventilator rate 12 /MIN
[2024-01-03 05:37] LABS: Arterial Blood Gas Tidal Volume 400 ml
[2024-01-03 06:38] LABS: Hematocrit 34.6 % (37.0-47.0); Hemoglobin 11.1 g/dL (12.0-15.0); Mean Corpuscular HGB Conc 32.1 g/dl (32-36); Mean Corpuscular Hemoglobin 28.2 pg (26-34); Mean Platelet Volume 9.1 fl (7.4-10.4); Platelet Count Result 337 k/mm3 (150-375); Red Blood Count 3.93 M/mm3 (4.2-5.4); Red Cell Distribution Width 14.4 % (11.5-14.5); White Blood Count 13.6 K/mm3 (4.5-10.0)
[2024-01-03 07:02] LABS: Alanine Aminotransferase 14 U/L (6-35); Alkaline Phosphatase 71 U/L (38-126); Anion Gap 4 mmol/L (8-16); Aspartate Amino Transferase 25 U/L (14-36); Bilirubin,Total 0.3 mg/dL (0.2-1.3); Blood Urea Nitrogen 18 mg/dL (7-17); Calcium 8.5 mg/dL (8.4-10.2); Carbon Dioxide 28 mmol/L (22-30); Chloride 99 mmol/L (98-107); Estimated CRCL calculation 52 ml/min; Estimated Glomerular Filt Rate > 60; Glucose 143 mg/dL (65-110); Magnesium 2.1 mg/dL (1.6-2.3); Potassium 3.9 mmol/L (3.4-5.0); Sodium 131 mmol/L (137-145)
--- NOTE | 2024-01-03 11:53 | WPDINTPN ---
Progress Note: A&P Assessment and Plan (1) Acute hypoxic respiratory failure: Code(s): J96.01 - Acute respiratory failure with hypoxia Status: Acute Assessment and Plan: Acute Respiratory failure secondary to COPD exacerbation -01/01: Intubated in the ER -Continue full mechanical ventilation support to prevent hypoxemia/hypercarbia and end organ damage. -ABG, chest x-ray and vent settings reviewed and adjusted -Chest x-ray shows COPD changes and does not show any obvious infiltrates is above pneumonia. Her procalcitonin level is low -Low tidal volume ventilation strategy to prevent volutrauma -Continue steroids,Bronchodilators -Patient was started on empiric antibiotics, ceftriaxone and azithromycin. -01/02; sputum cultures pending -01/02: Blood cultures negative x2 so far (2) Chronic obstructive pulmonary disease with acute exacerbation: Code(s): J44.1 - Chronic obstructive pulmonary disease with (acute) exacerbation Status: Acute Assessment and Plan: Continue bronchodilators, mechanical ventilation and antibiotics (3) CAD (coronary artery disease): Qualifiers: Coronary Disease-Associated Artery/Lesion type: [place] artery [place] vs. transplanted heart: [place] heart Associated angina: without angina Qualified Code(s): I25.10 - Atherosclerotic heart disease of [place] coronary artery without angina pectoris Code(s): I25.10 - Atherosclerotic heart disease of [place] coronary artery without angina pectoris Status: Acute Assessment and Plan: History of coronary disease status post stenting. No details are known at this time -Continue aspirin Plavix -Patient not on GILDARDO-inhibitor beta-shu or statin as an outpatient -EKG reviewed and shows sinus rhythm. Patient did not report any chest pain the ER -initial troponin was elevated but repeat troponins have normalized Echocardiogram has been completed and pending report (4) CHF (congestive heart failure): Qualifiers: Heart failure type: unspecified Heart failure chronicity: chronic Qualified Code(s): I50.9 - Heart failure, unspecified Code(s): I50.9 - Heart failure, unspecified Status: Acute Assessment and Plan: Mention of CHF in her records from [facility]. Hold further fluids ProBNP was 2630 -echo pending report (5) Paroxysmal atrial fibrillation: Code(s): I48.0 - Paroxysmal atrial fibrillation Status: Acute Assessment and Plan: It appears the patient went to AFib in the past during COPD exacerbation and again presented with AFib which now has converted back to sinus rhythm after initiation of amiodarone intubation and sedation -Off amiodarone infusion. - Continue aspirin and Plavix -Hold anticoagulation as patient is sister reports the patient complained of blood in her stool (6) Tobacco abuse: Code(s): Z72.0 - Tobacco use Status: Acute Assessment and Plan: Patient is a heavy smoker and continues to smoke heavily. Will drug counselor once patient is extubated (7) Electrolyte abnormality: Code(s): E87.8 - Other disorders of electrolyte and fluid balance, not elsewhere classified Status: Acute Assessment and Plan: Potassium and magnesium have normalized since replacement yesterday Plan DVT prophylaxis -Lovenox Stress ulcer prophylaxis -PPI Nutrition -tolerating tube feeds Code Status - Full Code. Dr. Sweeney spoke to and updated patient's sister and at bedside answered all their questions. He explained them the patient has COPD exacerbation, AFib and respiratory failure Total Critical Care Time - 33 minutes Due to a high probability of clinically significant, life threatening deterioration, the patient required my highest level of preparedness to intervene emergently and I personally spent this critical care time directly and personally managing the patient. This critical care time includ
--- NOTE | 2024-01-03 12:14 | PCNFU ---
Nutrition Follow-Up Complete: Inadequate Energy Expenditure as related to to mechanical ventilation as evidenced by NPO. Goal: Meet estimated nutritional needs Patient is progressing towards goal. We will continue current goal. Pt current nutrition is Vital AF 1.2 at 45 ml/hr. Last recorded weight is 62 kg, up from 59.9 kg on admit. Bowel Motility:No BM reported at this time. Labs Reviewed:Glu 143, BUN 18, NA 131, Alb 3.0,Hgb 11.1 Meds Noted: Rocephin, Zithromax, Protonix, Solu Medrol, Propofol 30 aacu=814 kcals, Fentanyl. Skin: WNL Additional Notes: Patient remains on mechanical vent and tube feedings of Vital AF 1.2 at 45 ml/hr at this time. Tolerating tube feeding per nursing. Total nutrition at this time: 1473 kcals/74 gms protein/803 ml water. Recommend to continue tube feeding rate due to Propofol infusion. Will continue to monitor for any tube feeding rate changes. Will monitor daily in ICU rounds. Reassssing weight, labs, skin, meds, tube feeding tolerance every Tuesday and Tuesday.
--- NOTE | 2024-01-03 15:32 | PM.IMPN ---
Progress Note: A&P Assessment and Plan (1) Acute hypoxic respiratory failure: Code(s): J96.01 - Acute respiratory failure with hypoxia Status: Acute Assessment and Plan: Patient presents with acute respiratory failure secondary to COPD exacerbation. Patient had AFib/RVR treated with diltiazem but had rapid decline in her breathing with concern for mucous plug requiring emergent intubation. Suctioned mucous after intubation. CXR showing no acute abnormalities but probable COPD ABG on MV 7.37/37/361. COVID, influenza, and RSV PCR negative. MRSA nasal swab negative. Patient now intubated and sedated. Probably related to COPD exacerbation. PNA unlikely with clear CXR and low procalcitonin. We considered PE with sudden onset change, clear CXR and AFib. CTA negative for PE but does show upper lobe nodular opacities likely PNA Continue steroids and bronchodilators. Continue antibiotics (plan to switch to Rocephin and Azithro) (2) Paroxysmal atrial fibrillation: Code(s): I48.0 - Paroxysmal atrial fibrillation Status: Acute Assessment and Plan: Patient with AFib/RVR in ED treated with diltiazem. First EKG showing sinus mechanism and no change from prior. 2nd EKG showing AFib with RVR (121) with ST depression Amiodarone added and patient converted to NSR She has hx of pAFib and is not on anticoagulation due to hx of rectal bleeding. Echo showing EF 60-65%, Grade i diastolic dysfunction and mild valve disease. No anticoagulation started here. Continue aspirin and Plavix (3) Chronic obstructive pulmonary disease with acute exacerbation: Code(s): J44.1 - Chronic obstructive pulmonary disease with (acute) exacerbation Status: Acute Assessment and Plan: As above Resume inhalers when more stable (4) CAD (coronary artery disease): Qualifiers: Coronary Disease-Associated Artery/Lesion type: [place] artery [place] vs. transplanted heart: [place] heart Associated angina: without angina Qualified Code(s): I25.10 - Atherosclerotic heart disease of [place] coronary artery without angina pectoris Code(s): I25.10 - Atherosclerotic heart disease of [place] coronary artery without angina pectoris Status: Acute Assessment and Plan: History of coronary disease status post stenting. No details are known at this time Continue aspirin and Plavix Patient not on GILDARDO-inhibitor, beta-shu or statin as an outpatient EKG reviewed as above Troponin peaked at 0.049. Echo as above. Follow (5) CHF (congestive heart failure): Qualifiers: Heart failure type: unspecified Heart failure chronicity: chronic Qualified Code(s): I50.9 - Heart failure, unspecified Code(s): I50.9 - Heart failure, unspecified Status: Acute Assessment and Plan: Mention of CHF in her records from [facility]. Holding further fluids. BNP 2630. CXR was clear and clinically not appears fluid overloaded. Holding lasix (6) Tobacco abuse: Code(s): Z72.0 - Tobacco use Status: Acute Assessment and Plan: Patient is a heavy smoker and continues to smoke heavily. Will counseling center director patient once extubated (7) Electrolyte abnormality: Code(s): E87.8 - Other disorders of electrolyte and fluid balance, not elsewhere classified Status: Acute Assessment and Plan: Monitor electrolytes and replace as needed Plan DVT prophylaxis -Lovenox Stress ulcer prophylaxis -PPI Nutrition -start Tube Feeds Code Status - Full Code. Subjective Date/time seen: 01/03/24 15:32 Interval history: 68yo female with COPD, CAD, CHF and ongoing tobacco use here for shortness of breath. Remains intubated. Alert. Review of Systems Review of Systems: ROS unobtainable: Yes unobtainable due to endotracheal tube Exam Narrative: AF 98.6 99/65 90 16 95% MV Gen - intubated and sedated HEENT - OG
[2024-01-04] VITALS (39 sets, daily range): BP systolic 74–153; BP diastolic 57–86; PULSE 58–93; RESP 9–20; TEMP 36.6–37.3; O2SAT 90–100
[2024-01-04 04:18] LABS: Alveolar/Arterial O2 Gradient 65.9 mmHg; Base Excess ABG 1.4 mEq/l (+/-2.0); Carboxyhemoglobin 0.2 % THb (0-2.0); Fractional Inspired Oxygen 25 %; HCO3 ABG 26.2 mEq/l (22.0-26.0); Methemoglobin ABG 0.3 %THb (0-1.5); Oxygen Content ABG 14.3 %vol (16.0-22.0); Oxygen Saturation ABG 92.1 % (95.0-100.0); Oxyhemoglobin 89.6 % THb (90.0-100.0); PCO2 ABG 42.1 mmHg (35.0-45.0); PO2 ABG 62.4 mmHg (80.0-100.0); Reduced Hemoglobin 9.9 %THb (0-5.0); Total Hemoglobin 11.3 g/dL (12.0-18.0); pH ABG 7.412 (7.350-7.450)
[2024-01-04 04:20] LABS: Arterial Blood Gas PEEP 5 cmH2O; Arterial Blood Gas Tidal Volume 400 ml; Arterial Blood Gas Vent Mode CMV; Arterial Blood Gas Ventilator rate 12 /MIN; Device VENTILATOR; Modified Allen's Test Pass; Site Drawn RIGHT RADIAL
[2024-01-04 05:12] LABS: Hematocrit 33.3 % (37.0-47.0); Hemoglobin 10.1 g/dL (12.0-15.0); Mean Corpuscular HGB Conc 30.3 g/dl (32-36); Mean Corpuscular Hemoglobin 27.6 pg (26-34); Mean Platelet Volume 8.6 fl (7.4-10.4); Platelet Count Result 353 k/mm3 (150-375); Red Blood Count 3.66 M/mm3 (4.2-5.4); Red Cell Distribution Width 14.7 % (11.5-14.5); White Blood Count 11.2 K/mm3 (4.5-10.0)
[2024-01-04 05:37] LABS: Alanine Aminotransferase 17 U/L (6-35); Albumin Level 2.8 g/dL (3.5-5.1); Alkaline Phosphatase 62 U/L (38-126); Anion Gap -2 mmol/L (8-16); Aspartate Amino Transferase 26 U/L (14-36); Bilirubin,Total 0.2 mg/dL (0.2-1.3); Blood Urea Nitrogen 22 mg/dL (7-17); Calcium 8.3 mg/dL (8.4-10.2); Carbon Dioxide 31 mmol/L (22-30); Chloride 103 mmol/L (98-107); Estimated CRCL calculation 68 ml/min; Estimated Glomerular Filt Rate > 60; Glucose 93 mg/dL (65-110); Magnesium 2.1 mg/dL (1.6-2.3); Sodium 132 mmol/L (137-145); Triglycerides 108 mg/dL (<150)
[2024-01-04 05:52] LABS: Potassium 3.8 mmol/L (3.4-5.0)
--- NOTE | 2024-01-04 08:43 | WPDINTPN ---
Progress Note: A&P Assessment and Plan (1) Acute hypoxic respiratory failure: Code(s): J96.01 - Acute respiratory failure with hypoxia Status: Acute Assessment and Plan: Acute Respiratory failure secondary to COPD exacerbation -01/01: Intubated in the ER -Continue full mechanical ventilation support to prevent hypoxemia/hypercarbia and end organ damage. -ABG, chest x-ray and vent settings reviewed and adjusted -Chest x-ray shows COPD changes and does not show any obvious infiltrates is above pneumonia. Her procalcitonin level is low -Low tidal volume ventilation strategy to prevent volutrauma -wean steroids -continue Bronchodilators -Patient was started on empiric antibiotics, ceftriaxone and azithromycin (01/02) -01/02; sputum cultures -specimen district representative of lower respiratory tract -01/02: Blood cultures negative x2 so far -Have asked the bedside RN to discontinue propofol and start weaning fentanyl to off -placed patient on pressor support ventilation 08/18, tolerating well. Will place patient on breathing trial and evaluate for extubation (2) Chronic obstructive pulmonary disease with acute exacerbation: Code(s): J44.1 - Chronic obstructive pulmonary disease with (acute) exacerbation Status: Acute Assessment and Plan: Continue bronchodilators, mechanical ventilation and antibiotics (3) CAD (coronary artery disease): Qualifiers: Coronary Disease-Associated Artery/Lesion type: [place] artery [place] vs. transplanted heart: [place] heart Associated angina: without angina Qualified Code(s): I25.10 - Atherosclerotic heart disease of [place] coronary artery without angina pectoris Code(s): I25.10 - Atherosclerotic heart disease of [place] coronary artery without angina pectoris Status: Acute Assessment and Plan: History of coronary disease status post stenting. No details are known at this time -Continue aspirin Plavix -Patient not on GILDARDO-inhibitor beta-shu or statin as an outpatient -EKG reviewed and shows sinus rhythm. Patient did not report any chest pain the ER -initial troponin was elevated but repeat troponins have normalized 01/02/2024 Echocardiogram: Summary ? 1. Complete two-dimensional, color flow and Doppler transthoracic echocardiogram is performed. ? 2. Left ventricular chamber dimension is normal. ? 3. Left ventricular systolic function is normal, estimated at 60-65%. ? 4. The left ventricular diastolic function is grade I diastolic dysfunction. ? 5. Right ventricular systolic function is normal. ? 6. Left atrial chamber dimension is mildly enlarged. ? 7. There is mild aortic valve regurgitation. ? 8. There is mild mitral valve regurgitation. ? 9. There is mild tricuspid valve regurgitation. (4) CHF (congestive heart failure): Qualifiers: Heart failure type: unspecified Heart failure chronicity: chronic Qualified Code(s): I50.9 - Heart failure, unspecified Code(s): I50.9 - Heart failure, unspecified Status: Acute Assessment and Plan: Mention of CHF in her records from [facility]. ProBNP was 2630 -echo as above (5) Paroxysmal atrial fibrillation: Code(s): I48.0 - Paroxysmal atrial fibrillation Status: Acute Assessment and Plan: It appears the patient went to AFib in the past during COPD exacerbation and again presented with AFib which now has converted back to sinus rhythm after initiation of amiodarone intubation and sedation -Off amiodarone infusion. - Continue aspirin and Plavix -Hold anticoagulation as patient is sister reports the patient complained of blood in her stool (6) Tobacco abuse: Code(s): Z72.0 - Tobacco use Status: Acute Assessment and Plan: Patient is a heavy smoker and continues to smoke heavily. Will employee counselor once patient is extubated (7) Electrolyte abnormality: Code(s): E87.8 - Other disorders of electrolyte and
--- NOTE | 2024-01-04 09:10 | PC.NURSE ---
Quickly weaned off sedation this am per dr. Guerrier's request
[2024-01-04 10:22] LABS: Alveolar/Arterial O2 Gradient 114.6 mmHg; Base Excess ABG -0.5 mEq/l (+/-2.0); Fractional Inspired Oxygen 30 %; HCO3 ABG 23.1 mEq/l (22.0-26.0); Oxygen Saturation ABG 91.8 % (95.0-100.0); PCO2 ABG 34.4 mmHg (35.0-45.0); PO2 ABG 58.9 mmHg (80.0-100.0); PO2 FiO2 Ratio Arterial Blood 1.96 %; pH ABG 7.444 (7.350-7.450)
[2024-01-04 10:24] LABS: Device VENTILATOR; Modified Allen's Test Pass; Site Drawn RIGHT RADIAL
[2024-01-04 10:25] LABS: Arterial Blood Gas PEEP 5 cmH2O; Arterial Blood Gas Pressure Support 8 cmH2O; Arterial Blood Gas Vent Mode SPONTANEOUS
--- NOTE | 2024-01-04 10:39 | PC.NURSE ---
pt extubated at 1025, placed on 3l nc, ogt dc'd at this time. non-violent restraints removed
--- NOTE | 2024-01-04 10:50 | PCFNICU ---
ICU Rounding Note: Pt current nutrition is NPO. Nutrition recommendation: advance diet as tolerated per MD orders. Last recorded weight is 64.9 kg, up from 59.9 kg on admit. Bowel Motility: No BM reported. Labs Reviewed: Cr 0.6, Na 132, BUN 22, Hct 33.3,Hgb 10.1 Meds Noted: Lovenox, Protonix, Rocephin, Zithromax, Solu Medrol. Skin: WNL Additional Notes: Patient has been extubated. Tube feedings stopped. Recommend advancing diet as tolerated per MD orders with addition of Ensure compact BID for additional 220 kcals and 9 gms protein. Following daily in ICU rounds. Will monitor weight, labs, skin, meds, tube feeding tolerance every 3 days.
[2024-01-05] VITALS (16 sets, daily range): BP systolic 106–160; BP diastolic 85–96; PULSE 70–92; RESP 16–20; TEMP 36.7–37.1; O2SAT 94–100
[2024-01-05 05:56] LABS: Hematocrit 32.6 % (37.0-47.0); Hemoglobin 10.2 g/dL (12.0-15.0); Mean Corpuscular HGB Conc 31.3 g/dl (32-36); Mean Corpuscular Hemoglobin 27.9 pg (26-34); Mean Corpuscular Volume 89.3 fl (80-100); Mean Platelet Volume 8.7 fl (7.4-10.4); Platelet Count Result 352 k/mm3 (150-375); Red Blood Count 3.65 M/mm3 (4.2-5.4); Red Cell Distribution Width 14.4 % (11.5-14.5); White Blood Count 10.1 K/mm3 (4.5-10.0)
[2024-01-05 06:21] LABS: Alanine Aminotransferase 26 U/L (6-35); Alkaline Phosphatase 66 U/L (38-126); Anion Gap 1 mmol/L (8-16); Aspartate Amino Transferase 32 U/L (14-36); Bilirubin,Total 0.3 mg/dL (0.2-1.3); Blood Urea Nitrogen 13 mg/dL (7-17); Calcium 8.4 mg/dL (8.4-10.2); Carbon Dioxide 29 mmol/L (22-30); Chloride 100 mmol/L (98-107); Estimated CRCL calculation 80 ml/min; Estimated Glomerular Filt Rate > 60; Glucose 90 mg/dL (65-110); Magnesium 1.7 mg/dL (1.6-2.3); Potassium 3.3 mmol/L (3.4-5.0); Sodium 130 mmol/L (137-145)
--- NOTE | 2024-01-05 07:49 | WPDINTPN ---
Progress Note: A&P Assessment and Plan (1) Acute hypoxic respiratory failure: Code(s): J96.01 - Acute respiratory failure with hypoxia Status: Acute Assessment and Plan: Acute Respiratory failure secondary to COPD exacerbation -01/01: Intubated in the ER -01/04: Extubated -will discontinue steroids today -continue Bronchodilators -Patient was started on empiric antibiotics, ceftriaxone and azithromycin (01/02), continue for 5 days (end date 01/06) -01/02; sputum cultures -specimen banking representative of lower respiratory tract -01/02: Blood cultures negative x2 so far -PT/OT to evaluate and treat -incentive spirometry has been ordered (2) Chronic obstructive pulmonary disease with acute exacerbation: Code(s): J44.1 - Chronic obstructive pulmonary disease with (acute) exacerbation Status: Acute Assessment and Plan: Likely acute exacerbation of COPD - Continue bronchodilators, steroids and antibiotics (3) CAD (coronary artery disease): Qualifiers: Coronary Disease-Associated Artery/Lesion type: [place] artery [place] vs. transplanted heart: [place] heart Associated angina: without angina Qualified Code(s): I25.10 - Atherosclerotic heart disease of [place] coronary artery without angina pectoris Code(s): I25.10 - Atherosclerotic heart disease of [place] coronary artery without angina pectoris Status: Acute Assessment and Plan: History of coronary disease status post stenting. No details are known at this time -Continue aspirin Plavix -EKG reviewed and shows sinus rhythm. Patient did not report any chest pain the ER -initial troponin was elevated but repeat troponins have normalized 01/02/2024 Echocardiogram: Summary ? 1. Complete two-dimensional, color flow and Doppler transthoracic echocardiogram is performed. ? 2. Left ventricular chamber dimension is normal. ? 3. Left ventricular systolic function is normal, estimated at 60-65%. ? 4. The left ventricular diastolic function is grade I diastolic dysfunction. ? 5. Right ventricular systolic function is normal. ? 6. Left atrial chamber dimension is mildly enlarged. ? 7. There is mild aortic valve regurgitation. ? 8. There is mild mitral valve regurgitation. ? 9. There is mild tricuspid valve regurgitation. (4) CHF (congestive heart failure): Qualifiers: Heart failure type: unspecified Heart failure chronicity: chronic Qualified Code(s): I50.9 - Heart failure, unspecified Code(s): I50.9 - Heart failure, unspecified Status: Acute Assessment and Plan: Mention of CHF in her records from [facility]. ProBNP was 2630 -echo as above -continue spironolactone, losartan -hold diltiazem as currently in sinus rhythm with heart rates in the 70s, will restart in a.m. on 01/06 (5) Paroxysmal atrial fibrillation: Code(s): I48.0 - Paroxysmal atrial fibrillation Status: Acute Assessment and Plan: It appears the patient went to AFib in the past during COPD exacerbation and again presented with AFib which now has converted back to sinus rhythm after initiation of amiodarone intubation and sedation -Off amiodarone infusion. - Continue aspirin and Plavix -Hold anticoagulation as patient is sister reports the patient complained of blood in her stool -currently in sinus rhythm (6) Tobacco abuse: Code(s): Z72.0 - Tobacco use Status: Acute Assessment and Plan: Patient is a heavy smoker and continues to smoke heavily. -counseled patient on cessation of smoking, patient understands and is agreeable (7) Electrolyte abnormality: Code(s): E87.8 - Other disorders of electrolyte and fluid balance, not elsewhere classified Status: Acute Assessment and Plan: Will replace potassium and magnesium Plan DVT prophylaxis -Lovenox Stress ulcer prophylaxis -PPI Nutrition -tolerating clear liquids, will advance to heart healthy
--- NOTE | 2024-01-05 09:06 | P.CDI_ITS ---
CDI Query Clarification Request Documented history of CHF. CHF noted in the assessment and plan. Elevated BNP on 01/02/24 lab work. 01/02/24 Echo notes EF 60-65%, grade1 diastolic dysfunction. Please specify type and acuity of heart failure if known. * Acute * Chronic * Acute on Chronic * Unknown * Systolic * Diastolic * Combined Systolic and Diastolic * Unknown <Elisha Wilkinson RN - Last Filed: 01/05/24 09:09> Clarified Diagnosis Clarified Diagnosis: Acute on chronic DIAStolic CHF <Rubina Castillo MD - Last Filed: 01/05/24 16:01>
--- NOTE | 2024-01-05 10:44 | PCFNICU ---
ICU Rounding Note: Pt current nutrition is Full liquids. Nutrition recommendation: advance as tolerated per MD orders. Last recorded weight is 62.5 kg, up from 59.9 kg on admit Bowel Motility:+BM reported 01/05 Labs Reviewed:Na 130, Alb 3.0,k 3.3 Meds Noted: Protonix, Lovenox, Solu Medrol, Zithromax, Rocephin Skin: WNL Additional Notes: Diet order has been advanced to a full liquid diet. Tolerated clear liquids, 75%. Plans to advance dinner meal to heart healthy. Agree with diet orders. No further nutritional interventions needed at this time. Will monitor weight, labs, skin, meds, tube feeding tolerance every 7 days.
--- NOTE | 2024-01-05 12:10 | PC.NURSE ---
This patient, Latoya Barlow, was transferred to [[id number]] on 01/05/24 at 1210. Personal belongings sent with patient. Report given to [Codi PUGH]. Appropriate documentation sent with patient.
--- NOTE | 2024-01-05 13:32 | PM.IMPN ---
Progress Note: A&P Assessment and Plan (1) Acute hypoxic respiratory failure: Code(s): J96.01 - Acute respiratory failure with hypoxia Status: Acute Assessment and Plan: Acute Respiratory failure secondary to COPD exacerbation -01/01: Intubated in the ER -01/04: Extubated 01/05: ok to dc to medical floor on iv rocephin and oral zithromax and iv steroids (2) Chronic obstructive pulmonary disease with acute exacerbation: Code(s): J44.1 - Chronic obstructive pulmonary disease with (acute) exacerbation Status: Acute Assessment and Plan: Likely acute exacerbation of COPD - Continue bronchodilators, steroids and antibiotics (3) CAD (coronary artery disease): Qualifiers: Coronary Disease-Associated Artery/Lesion type: [place] artery [place] vs. transplanted heart: [place] heart Associated angina: without angina Qualified Code(s): I25.10 - Atherosclerotic heart disease of [place] coronary artery without angina pectoris Code(s): I25.10 - Atherosclerotic heart disease of [place] coronary artery without angina pectoris Status: Acute Assessment and Plan: History of coronary disease status post stenting. -Continue aspirin Plavix - medically stable (4) CHF (congestive heart failure): Qualifiers: Heart failure type: unspecified Heart failure chronicity: chronic Qualified Code(s): I50.9 - Heart failure, unspecified Code(s): I50.9 - Heart failure, unspecified Status: Acute Assessment and Plan: Mention of CHF in her records from [facility]. - sp echo -continue spironolactone, losartan (5) Paroxysmal atrial fibrillation: Code(s): I48.0 - Paroxysmal atrial fibrillation Status: Acute Assessment and Plan: It appears the patient went to AFib in the past during COPD exacerbation and again presented with AFib which now has converted back to sinus rhythm after initiation of amiodarone intubation and sedation -Off amiodarone infusion. - Continue aspirin and Plavix -Hold anticoagulation history of gi bleed (6) Tobacco abuse: Code(s): Z72.0 - Tobacco use Status: Acute Assessment and Plan: Patient is a heavy smoker and continues to smoke heavily. -long discussion about smoking cessation (7) Electrolyte abnormality: Code(s): E87.8 - Other disorders of electrolyte and fluid balance, not elsewhere classified Status: Acute Assessment and Plan: continue to watc h bmp and mg Plan pt having some diarrhea likley from abx add probiotics continue to watch diarrhea Subjective Date/time seen: 01/05/24 13:32 Interval history: 68-year-old female with past medical history significant for COPD/ emphysema, coronary artery disease, tobacco dependence.? Patient is still a current everyday smoker of half a pack of cigarettes a day although states that has not been able to smoke a cigarette in the last 2 days due to worsening shortness of breath, which has been present now for the last week or so, patient denies any fevers, rigors, chills, has had poor appetite, poor per orally intake, denies any nausea, vomiting, abdominal pain.? In emergency room patient was found to have atrial fibrillation with rapid ventricular response which responded to diltiazem IV push she was placed on supplemental oxygen by nasal cannula as well received nebulizer? treatment.? while in the emergency room patient had episode in which she rapidly deteriorated requiring intubation and mechanical ventilation. Pt is extubated doing better ok to transfer to the medical floor Review of Systems Review of Systems: SOB improving mild diarrhea Exam Const: General: cooperative, comfortable, no acute distress, well developed, alert, awake, ill appearing chronically, tired appearing and average body habitus Nutritional Appearance: average body habitus Orientation/consciousness: patient tray
[2024-01-06] VITALS (10 sets, daily range): BP systolic 134; BP diastolic 78; PULSE 70–96; RESP 18–20; TEMP 36.6; O2SAT 92–98
[2024-01-06 05:24] LABS: Hematocrit 33.2 % (37.0-47.0); Hemoglobin 10.5 g/dL (12.0-15.0); Mean Corpuscular HGB Conc 31.6 g/dl (32-36); Mean Corpuscular Hemoglobin 28.1 pg (26-34); Mean Corpuscular Volume 88.8 fl (80-100); Mean Platelet Volume 8.5 fl (7.4-10.4); Platelet Count Result 353 k/mm3 (150-375); Red Blood Count 3.74 M/mm3 (4.2-5.4); Red Cell Distribution Width 14.4 % (11.5-14.5)
[2024-01-06 05:40] LABS: Alanine Aminotransferase 33 U/L (6-35); Albumin Level 2.8 g/dL (3.5-5.1); Alkaline Phosphatase 65 U/L (38-126); Anion Gap 1 mmol/L (8-16); Aspartate Amino Transferase 41 U/L (14-36); Bilirubin,Total 0.3 mg/dL (0.2-1.3); Blood Urea Nitrogen 10 mg/dL (7-17); Calcium 8.2 mg/dL (8.4-10.2); Carbon Dioxide 28 mmol/L (22-30); Chloride 100 mmol/L (98-107); Estimated CRCL calculation 80 ml/min; Estimated Glomerular Filt Rate > 60; Glucose 90 mg/dL (65-110); Magnesium 1.9 mg/dL (1.6-2.3); Potassium 3.6 mmol/L (3.4-5.0); Sodium 129 mmol/L (137-145)
--- NOTE | 2024-01-06 14:27 | PM.DS ---
DS: Admitting Diagnosis Discharge Date 01/06/2024 Admitting Diagnosis Shortness of breath DS: Discharge Diagnosis Discharge Diagnosis (1) Acute hypoxic respiratory failure: Code(s): J96.01 - Acute respiratory failure with hypoxia Status: Acute (2) Chronic obstructive pulmonary disease with acute exacerbation: Code(s): J44.1 - Chronic obstructive pulmonary disease with (acute) exacerbation Status: Acute (3) CAD (coronary artery disease): Qualifiers: Coronary Disease-Associated Artery/Lesion type: [place] artery [place] vs. transplanted heart: [place] heart Associated angina: without angina Qualified Code(s): I25.10 - Atherosclerotic heart disease of [place] coronary artery without angina pectoris Code(s): I25.10 - Atherosclerotic heart disease of [place] coronary artery without angina pectoris Status: Acute (4) CHF (congestive heart failure): Qualifiers: Heart failure type: unspecified Heart failure chronicity: chronic Qualified Code(s): I50.9 - Heart failure, unspecified Code(s): I50.9 - Heart failure, unspecified Status: Acute (5) Paroxysmal atrial fibrillation: Code(s): I48.0 - Paroxysmal atrial fibrillation Status: Acute (6) Tobacco abuse: Code(s): Z72.0 - Tobacco use Status: Acute (7) Electrolyte abnormality: Code(s): E87.8 - Other disorders of electrolyte and fluid balance, not elsewhere classified Status: Acute DS: Summary Hospital Course Hospital Course: 68-year-old female presents to the ED on 01/01/2024 with worsening shortness of breath over the past 6 days. History of COPD. Patient was in respiratory distress when arrived to the ED. she was also noted to be in AFib with RVR was treated with Cardizem with improvement. She was emergently intubated in the ER and was admitted to the ICU. For AFib she was also started on amiodarone however eventually she converted back to normal sinus rhythm. Her blood pressure stable without needing any pressors. Her evaluation showed hyponatremia at 1:26 a.m. leukocytosis 15,000 influenza RSV COVID was negative. She was treated for COPD exacerbation. Chest x-ray showed COPD changes without any obvious infiltrate. Procalcitonin level was low. She was started on steroid and bronchodilators. Empiric antibiotic was started which he completed during the hospital stay. She has history of coronary artery disease and stenting and on aspirin Plavix. Paroxysmal atrial fibrillation during admission which she converted back to sinus rhythm after initiation of amiodarone anticoagulation was held as he had history of GI bleeding. She remained in sinus rhythm throughout the hospital stay Echo showed normal EF at 60-65% grade 1 diastolic dysfunction no significant valvular abnormality. She was eventually extubated on 01/04/2024 finished steroid course during the hospital stay. She was ambulatory and back to her baseline. She will follow up with PCP as an outpatient basis upon discharge. Time Spent with Patient Time attestation: Total time spent providing and/or coordinating discharge services: 35 minutes Exam Narrative: General: Pleasant female, extubated on 01/04, in no acute distress HEENT: Pupils equal and reactive, sclera is clear, Lungs/Chest: Trachea central, coarse breath sounds at bases otherwise clear, No rales or wheezing. Cardiac: RRR. Normal S1 S2. No murmurs Circulation: Palpable pedal pulses, feet are warm Abdomen: Soft, nontender, nondistended, normoactive bowel sounds. Extremities: No clubbing, cyanosis or edema. Warm : [place] in place Neurologic: Patient is awake, alert, oriented, sitting on the side of the bed, answers to questions appropriately and follows simple commands in all extremities Psych: Normal mentation and affect DS: Data Data Completed and Pending Completed studies during hospitalization: Exam Type: ? ? CA echo doppler color flow Study
--- NOTE | 2024-01-06 15:58 | HOMEO2EVAL ---
Evaluation was performed at [facility] Home Oxygen Evaluation RC: Home Oxygen (O2) Evaluation Start: 01/06/24 14:18 Freq: ONCE Status: Active Protocol: RPE Activity Type Activity Date Activity User E-sign Co-sign Detail Recorded Client Recorded Date Recorded By Document 01/06/24 15:30 SIN [id number]_012 01/06/24 15:58 SIN Document 01/06/24 15:35 SIN RT_012 01/06/24 15:58 SIN Document 01/06/24 15:45 SIN [email or web address] 01/06/24 15:58 SIN 01/06/24 01/06/24 01/06/24 15:30 15:35 15:45 Home O2 Evaluation [Oxygen] -Test Phase Resting Exercise Resting -Oxygen Delivery Room Air Room Air Room Air [Pulse Oximetry] -Pulse Oximetry (90-100 %) 95 92 94 [Pulse Rate] -Pulse Rate (60-100 beats/min) 82 96 89 [Exercise] -Ambulation Distance (feet) 300 -Ambulation Distance (meters) 91.43 [Comments] -Home Oxygen Evaluation Comments No home O2 needed at this time. [Charges] -Evaluation Charges O2 Evaluation by Pulmonary
--- NOTE | 2024-01-06 15:58 | PCRCNOTE ---
Home O2 eval done, no home O2 needed at this time, RN notified.
== END 2024-01-06 16:10 | disposition home or self-care (01) | DRG 208 ==
LOC: ANHED 23:58 → ANHICU 01-02 01:32 → ANH3MED 01-05 12:38
PROVIDERS: Internal Medicine; Admitting Provider Internal Medicine; Emergency Provider Emergency Medicine; PCP Internal Medicine; Visit Provider Internal Medicine
DX: J44.1 Chronic obstructive pulmonary disease with (acute) exacerbation (principal); I50.33 Acute on chronic diastolic (congestive) heart failure; J96.01 Acute respiratory failure with hypoxia; J96.02 Acute respiratory failure with hypercapnia; I11.0 Hypertensive heart disease with heart failure; I25.10 Atherosclerotic heart disease of native coronary artery without angina pectoris; E87.8 Other disorders of electrolyte and fluid balance, not elsewhere classified; I48.0 Paroxysmal atrial fibrillation; F17.210 Nicotine dependence, cigarettes, uncomplicated; I73.9 Peripheral vascular disease, unspecified; Z20.822 Contact with and (suspected) exposure to COVID-19; Z79.82 Long term (current) use of aspirin; Z95.5 Presence of coronary angioplasty implant and graft
CPT/HCPCS: 31500; 36415; 36556; 36600; 71045; 71275; 74018; 80048; 80053; 82375; 82805; 83050; 83735; 83880; 84145; 84443; 84478; 84484; 85025; 85027; 87040; 87070; 87205; 87637; 87641; 93005; 93306; 93922; 94002; 94003; 94618; 94640; 96365; 96366; 96367; 96375; 97161; 97165; 99291; A9270; C1751; C9113; J0282; J0696; J1650; J2250; J2543; J2704; J2930; J3010; J3370; J3475; J7030; Q9967

== ENCOUNTER 2024-04-09 17:12 | Emergency (ER) | payer OTHER, SELFPAY ==
[2024-04-09 17:16] VITALS: BP 114/67; PULSE 95; RESP 18; TEMP 37.1; O2SAT 97
--- NOTE | 2024-04-09 17:29 | ED.RECABL ---
HPI - Recheck/Abnormal Lab/Rx General Chief Complaint: Recheck/Abnormal Lab/Rx Stated Complaint: low sodium Time Seen by Provider: 04/09/24 17:18 History of Present Illness HPI narrative: 68-year-old female with history of COPD, CHF, paroxysmal AFib, daily smoker presents to emergency department to recheck her sodium. Patient states she had her routine labs drawn by her PCP 1 week ago. States she has contacted few days later was told to go to the ED for further evaluation due to her sodium being 109. Patient states she procrastinated and presents today for further evaluation. She states she feels otherwise at her baseline. She denies any nausea or vomiting, abdominal pain, headache, seizure, abnormal mentation. She denies chest pain, dysuria hematuria, fever, congestion. No fevers, lower extremity edema. States otherwise she feels completely at her baseline and has no complaints. Related Data Home Medications Medication Instructions Recorded Confirmed albuterol sulfate 90 mcg/actuation 1 inh inhalation QID PRN SOB 01/14/20 01/02/24 aerosol inhaler (Ventolin HFA) aspirin 81 mg tablet,delayed 81 mg PO DAILY 01/14/20 01/02/24 release clopidogrel 75 mg tablet 75 mg PO DAILY 01/14/20 01/02/24 gabapentin 300 mg capsule 300 mg PO QID 01/14/20 01/02/24 loratadine 10 mg tablet 10 mg PO DAILY 01/14/20 01/02/24 memantine 5 mg tablet 5 mg PO BID 01/14/20 01/02/24 prednisone 5 mg tablet 5 mg PO DAILY 01/14/20 01/02/24 spironolactone 25 mg tablet 25 mg PO DAILY 01/14/20 01/02/24 atorvastatin 20 mg tablet 20 mg PO DAILY 01/02/24 01/02/24 budesonide 160 mcg-glycopyr 9 2 inh inhalation BID 01/02/24 01/02/24 mcg-formot 4.8 mcg/actuation HFA inhaler (Breztri Aerosphere) diltiazem HCl 180 mg 180 mg PO DAILY 01/02/24 01/02/24 capsule,extended release 24 hr donepezil 5 mg tablet 5 mg PO DAILY 01/02/24 01/02/24 ergocalciferol (vitamin D2) 1,250 1,250 mcg PO WEEKLY 01/02/24 01/02/24 mcg (50,000 unit) capsule linaclotide 72 mcg capsule 30 mcg PO DAILY 01/02/24 01/02/24 (Linzess) losartan 50 mg tablet 50 mg PO DAILY 01/02/24 01/02/24 tizanidine 2 mg tablet 2 mg PO TID 01/02/24 01/02/24 Allergies Allergy/AdvReac Type Severity Reaction Status Date / Time naproxen AdvReac Unknown Nausea and Verified 04/09/24 17:20 Dizziness Review of Systems Review of Systems: CONSTITUTIONAL: Denies fever, chills, or sweats. EYES: Denies visual changes, redness, or discharge. ENT: Denies rhinorrhea, congestion, sore throat, or otalgia. CARDIOVASCULAR: Denies chest pain, palpitations, or edema. RESPIRATORY: Denies cough. GASTROINTESTINAL: Denies abdominal pain, nausea, vomiting, or diarrhea. GENITOURINARY: Denies dysuria or hematuria. SKIN: Denies rash or itching. MUSCULOSKELETAL: Denies back pain, joint pain, or myalgia. NEUROLOGIC: Denies headache, numbness, or weakness. PSYCHIATRIC: Denies anxiety or depression. [facility] Past Medical History Medical History Atrial fibrillation CAD (coronary artery disease) CHF (congestive heart failure) History of CHF (congestive heart failure) History of COPD History of coronary artery disease Tobacco abuse Surgical History Surgical History H/O neck surgery pins placed in neck H/O: hysterectomy History of cardiac catheterization History of carpal tunnel release of both wrists History of tooth extraction Family History Family History Mother Breast cancer COPD (chronic obstructive pulmonary disease) Cervical cancer Sibling Heart failure Alcoholism Multiple sclerosis Social History Social History Social History: Patient is . She lives with her male friend. She has no children. She is a current smoker. She is a full code. She does desig
[2024-04-09 17:35] VITALS: RESP 19
[2024-04-09 17:37] LABS: Basophils Absolute Auto 0.1 K/mm3 (0.0-0.1); Basophils Percent Auto 1.1 % (0.2-1.2); Eosinophils Absolute Auto 0.1 K/mm3 (0-0.3); Eosinophils Percent Auto 0.8 % (0-4.4); Hematocrit 34.3 % (37.0-47.0); Hemoglobin 10.9 g/dL (12.0-15.0); Immature Granulocyte Absolute 0.03 K/mm3 (0.00-0.031); Immature Granulocyte Percent A 0.3 % (0-0.5); Lymphocytes Absolute Auto 2.41 K/mm3 (0.9-3.2); Lymphocytes Percent Auto 27.4 % (18.3-44.2); Mean Corpuscular HGB Conc 31.8 g/dl (32-36); Mean Corpuscular Hemoglobin 28.8 pg (26-34); Mean Corpuscular Volume 90.7 fl (80-100); Mean Platelet Volume 8.8 fl (7.4-10.4); Monocytes Percent Auto 11.3 % (2.6-8.5); Neutrophils Absolute Auto 5.2 K/mm3 (1.3-6.7); Neutrophils Percent Auto 59.1 % (45.5-73.1); Platelet Count Result 369 k/mm3 (150-375); Red Blood Count 3.78 M/mm3 (4.2-5.4); Red Cell Distribution Width 14.6 % (11.5-14.5); White Blood Count 8.8 K/mm3 (4.5-10.0)
[2024-04-09 17:44] LABS: Alanine Aminotransferase 17 U/L (6-35); Albumin Level 3.7 g/dL (3.5-5.1); Alkaline Phosphatase 60 U/L (38-126); Anion Gap 6 mmol/L (4-12); Aspartate Amino Transferase 25 U/L (14-36); Bilirubin,Total 0.4 mg/dL (0.2-1.3); Blood Urea Nitrogen 5 mg/dL (7-17); Calcium 8.4 mg/dL (8.4-10.2); Carbon Dioxide 25 mmol/L (22-30); Chloride 95 mmol/L (98-107); Estimated CRCL calculation 73 ml/min; Estimated Glomerular Filt Rate > 60; Glucose 93 mg/dL (65-110); Phosphorus 4.2 mg/dL (2.5-4.5); Potassium 5.2 mmol/L (3.4-5.0); Sodium 126 mmol/L (137-145)
[2024-04-09 18:33] VITALS: BP 121/76; PULSE 81; RESP 24; O2SAT 98
== END 2024-04-09 18:34 | disposition home or self-care (01) ==
PROVIDERS: Emergency Provider Physician Assistant; PCP Internal Medicine
DX: E87.6 Hypokalemia (principal); I48.0 Paroxysmal atrial fibrillation; I50.9 Heart failure, unspecified; I25.10 Atherosclerotic heart disease of native coronary artery without angina pectoris; J44.9 Chronic obstructive pulmonary disease, unspecified; F17.210 Nicotine dependence, cigarettes, uncomplicated; Z90.710 Acquired absence of both cervix and uterus; Z79.82 Long term (current) use of aspirin; Z79.899 Other long term (current) drug therapy
CPT/HCPCS: 36415; 80053; 83735; 84100; 85025; 99283

== ENCOUNTER 2024-09-19 06:07 | Emergency (ER) | payer OTHER, SELFPAY ==
[2024-09-19] VITALS (17 sets, daily range): BP systolic 122–153; BP diastolic 66–93; PULSE 80–157; RESP 12–26; TEMP 36.5; O2SAT 93–100
--- NOTE | ~2024-09-19 | XR_ITS ---
Portable chest x-ray Comparison: 01/06/2024 Clinical History: Shortness of breath Findings: Stable calcified left basilar granuloma. Probable COPD or other mild chronic interstitial disease. No acute consolidation. No pleural effusion or pneumothorax. Cardiomediastinal silhouette i s stable. Bones and soft tissues are unremarkable. Impression: No acute pulmonary abnormality evident. Probable COPD or other mild chronic interstitial disease. Reviewed, dictated and finalized at [facility]. [employer] Impression: No acute pulmonary abnormality evident. Probable COPD or other mild chronic interstitial disease.
[2024-09-19] MEDS: LEVALBUTEROL NEB 1.25 MG/3 ML INHALATION (06:30)
[2024-09-19] MEDS: dilTIAZem HCl INJ 25 MG/5 ML VIAL 10 MG IV PUSH ×2 (06:32→06:50)
[2024-09-19] MEDS: methylPREDNISolone SOD SUCC 125 MG VIAL IV PUSH (06:33)
[2024-09-19 06:38] LABS: Basophils Absolute Auto 0.1 K/mm3 (0.0-0.1); Basophils Percent Auto 0.5 % (0.2-1.2); Eosinophils Absolute Auto 0.1 K/mm3 (0-0.3); Eosinophils Percent Auto 0.5 % (0-4.4); Hematocrit 41.6 % (37.0-47.0); Hemoglobin 13.8 g/dL (12.0-15.0); Immature Granulocyte Absolute 0.05 K/mm3 (0.00-0.031); Immature Granulocyte Percent A 0.4 % (0-0.5); Lymphocytes Absolute Auto 2.64 K/mm3 (0.9-3.2); Lymphocytes Percent Auto 20.1 % (18.3-44.2); Mean Corpuscular HGB Conc 33.2 g/dl (32-36); Mean Corpuscular Hemoglobin 30.7 pg (26-34); Mean Corpuscular Volume 92.7 fl (80-100); Mean Platelet Volume 8.3 fl (7.4-10.4); Monocytes Absolute Auto 0.8 K/mm3 (0.1-0.6); Monocytes Percent Auto 6.2 % (2.6-8.5); Neutrophils Absolute Auto 9.5 K/mm3 (1.3-6.7); Neutrophils Percent Auto 72.3 % (45.5-73.1); Platelet Count Result 392 k/mm3 (150-375); Red Blood Count 4.49 M/mm3 (4.2-5.4); Red Cell Distribution Width 13.9 % (11.5-14.5); White Blood Count 13.1 K/mm3 (4.5-10.0)
--- NOTE | 2024-09-19 06:45 | ED.GENADULT ---
HPI - General Adult General Chief complaint: Shortness of Breath/Dyspnea <Sagar Bennett MD - Last Filed: 09/22/24 11:02> Stated complaint: Difficulty breathing <Sagar Bennett MD - Last Filed: 09/22/24 11:02> Time Seen by Provider: 09/19/24 06:59 <Sagar Bennett MD - Last Filed: 09/22/24 11:02> History of Present Illness HPI narrative: 69-year-old female with history of COPD, AFib presented to the emergency department for evaluation of worsening shortness of breath. Patient states she always has some shortness of breath and does continue to smoke. Patient felt that her shortness breath has worsened over the last few days including this morning. Patient arrived with a heart rate 130-150. Patient denies any associated chest pain. <Sagar Bennett MD - Last Filed: 09/22/24 11:02> Related Data Home medications: Home Medications Medication Instructions Recorded Confirmed albuterol sulfate 90 mcg/actuation 1 inh inhalation QID PRN SOB 01/14/20 01/02/24 aerosol inhaler (Ventolin HFA) aspirin 81 mg tablet,delayed 81 mg PO DAILY 01/14/20 01/02/24 release clopidogrel 75 mg tablet 75 mg PO DAILY 01/14/20 01/02/24 gabapentin 300 mg capsule 300 mg PO QID 01/14/20 01/02/24 loratadine 10 mg tablet 10 mg PO DAILY 01/14/20 01/02/24 memantine 5 mg tablet 5 mg PO BID 01/14/20 01/02/24 prednisone 5 mg tablet 5 mg PO DAILY 01/14/20 01/02/24 spironolactone 25 mg tablet 25 mg PO DAILY 01/14/20 01/02/24 atorvastatin 20 mg tablet 20 mg PO DAILY 01/02/24 01/02/24 budesonide 160 mcg-glycopyr 9 2 inh inhalation BID 01/02/24 01/02/24 mcg-formot 4.8 mcg/actuation HFA inhaler (Breztri Aerosphere) diltiazem HCl 180 mg 180 mg PO DAILY 01/02/24 01/02/24 capsule,extended release 24 hr donepezil 5 mg tablet 5 mg PO DAILY 01/02/24 01/02/24 ergocalciferol (vitamin D2) 1,250 1,250 mcg PO WEEKLY 01/02/24 01/02/24 mcg (50,000 unit) capsule linaclotide 72 mcg capsule 30 mcg PO DAILY 01/02/24 01/02/24 (Linzess) losartan 50 mg tablet 50 mg PO DAILY 01/02/24 01/02/24 tizanidine 2 mg tablet 2 mg PO TID 01/02/24 01/02/24 <Sagar Bennett MD - Last Filed: 09/22/24 11:02> Allergies/adverse reactions: Allergies Allergy/AdvReac Type Severity Reaction Status Date / Time naproxen AdvReac Unknown Nausea and Verified 04/09/24 17:20 Dizziness <Sagar Bennett MD - Last Filed: 09/22/24 11:02> Review of Systems Review of Systems: All systems reviewed & are unremarkable except as noted in HPI and below <Sagar Bennett MD - Last Filed: 09/22/24 11:02> [facility], [facility] Past Medical History Medical History: Medical History Atrial fibrillation CAD (coronary artery disease) CHF (congestive heart failure) History of CHF (congestive heart failure) History of COPD History of coronary artery disease Tobacco abuse <Sagar Bennett MD - Last Filed: 09/22/24 11:02> Surgical History Surgical History: Surgical History H/O neck surgery pins placed in neck H/O: hysterectomy History of cardiac catheterization History of carpal tunnel release of both wrists History of tooth extraction <Sagar Bennett MD - Last Filed: 09/22/24 11:02> Family History Family History: Family History Mother Breast cancer COPD (chronic obstructive pulmonary disease) Cervical cancer Sibling Heart failure Alcoholism Multiple sclerosis <Sagar Bennett MD - Last Filed: 09/22/24 11:02> Social History Social History: Social History Social History: Patient is . She lives with her male friend. She has no children. She is a current smoker. She is a full code. She does designate her 2 sisters, Marisol Beard and Luz Mario, as her healthcare surrogates but has no official POA. Smoking packs per day: 2 Smoking cigarettes per day: 40.0 Years smoked: 50 Smoking pack-years: 100.00 Smoking status: Current every day smoker Tobacco type: cigarettes Second hand tobacco smoke exposure: Yes Alcohol intake: unknown Substance use: never Substance use type: does not use Living arrangements: with friend(s) Additional living arrangements comments: Lives with friend Gender identity (if verbalized by the patient): Female Spiritual care concerns: No <Sagar Bennett MD - Last Filed: 09/22/24 11:02> Exam Narrative: APPEARANCE: Well appearing, no pain, no distress, well-nourished. HEAD: normocephalic, atraumatic. EYES: PERRLA/EOMI, conjunctivae clear. NOSE: Normal no drainage EARS:TMS clear with good light reflex. THROAT: Pharynx clear, no exudate. NECK: Supple. No adenopathy, no masses. RESPIRATORY: Wheezing respirations in all lung krishnamurthy CARDIOVASCULAR: Regular rate and rhythm without murmurs rubs or gallops. ABDOMINAL: Soft, nontender, nondistended, normal bowel sounds MUSCULOSKELETAL: Moves all extremities. Strength/ROM intact, No edema, No calf tenderness. NEURO: Alert. Cranial nerves II through XII intact. Good gait. Good coordination SKIN: Warm, dry. Normal Color <Sagar Bennett MD - Last Filed: 09/22/24 11:02> Course Vital Signs Vital signs: Vital Signs Temperature 97.7 F 09/19/24 06:08 Pulse Rate 129 H 09/19/24 06:08 Respiratory Rate 19 09/19/24 06:08 Blood Pressure 153/90 H 09/19/24 06:08 Pulse Oximetry 96 09/19/24 06:08 Oxygen Delivery Room Air 09/19/24 06:08 Temperature 97.7 F 09/19/24 06:08 Pulse Rate 95 09/19/24 08:50 Respiratory Rate 12 09/19/24 08:31 Blood Pressure 122/73 09/19/24 08:31 Pulse Oximetry 100 09/19/24 08:35 Oxygen Delivery Room Air 09/19/24 08:35 Oxygen Flow Rate 2 09/19/24 08:27 <aSgar Bennett MD - Last Filed: 09/22/24 11:02> Vital Signs Temperature 97.7 F 09/19/24 06:08 Pulse Rate 129 H 09/19/24 06:08 Respiratory Rate 19 09/19/24 06:08 Blood Pressure 153/90 H 09/19/24 06:08 Pulse Oximetry 96 09/19/24 06:08 Oxygen Delivery Room Air 09/19/24 06:08 Temperature 97.7 F 09/19/24 06:08 Pulse Rate 95 09/19/24 08:50 Respiratory Rate 12 09/19/24 08:31 Blood Pressure 122/73 09/19/24 08:31 Pulse Oximetry 100 09/19/24 08:35 Oxygen Delivery Room Air 09/19/24 08:35 Oxygen Flow Rate 2 09/19/24 08:27 <Berta Guevara MD - Last Filed: 09/19/24 08:45> Medical Decision Making MDM Narrative Medical decision making narrative: 69-year-old female presenting with signs and symptoms consistent with COPD exacerbation, also in AFib with RVR. She is treated for this, with an breathing treatments and Cardizem, she did convert back to sinus, labs within acceptable limits including a negative troponin and D-dimer. I did not feel anticoagulation is necessary at this time as she was just some paroxysmal atrial fibrillation and I suspect as a result from the albuterol, though I will have her follow-up with her doctor to make that final decision about anticoagulation. repeat EKG now shows normal sinus rhythm rate of 90, MS 152, QRS 84, QTC 402, left axis, no ST elevations or depressions on my independent interpretation I did as if we can keep her in the hospital however she states that there is no way she is staying and that she is going home. She states that she feels much better. she is resting comfortably, 94% on room air, heart rate 91. She promises that if she feels worse she will come back to the hospital. She is alert and oriented x4, make her own decisions, and I cannot hold her against her will. I will refill her albuterol, put on steroids and azithromycin for COPD exacerbation/ acute bronchitis, have follow-up to primary care doctor. <Berta Guevara MD - Last Filed: 09/19/24 08:45> Differential Diagnosis Differential Diagnosis: COPD, pulmonary embolism, pneumonia, AFib with RVR <Sagar Bennett MD - Last Filed: 09/22/24 11:02> Vital Signs Vital Signs: Vital Signs Temperature 97.7 F 09/19/24 06:08 Pulse Rate 129 H 09/19/24 06:08 Respiratory Rate 19 09/19/24 06:08 Blood Pressure 153/90 H 09/19/24 06:08 Pulse Oximetry 96 09/19/24 06:08 Oxygen Delivery Room Air 09/19/24 06:08 Temperature 97.7 F 09/19/24 06:08 Pulse Rate 95 09/19/24 08:50 Respiratory Rate 12 09/19/24 08:31 Blood Pressure 122/73 09/19/24 08:31 Pulse Oximetry 100 09/19/24 08:35 Oxygen Delivery Room Air 09/19/24 08:35 Oxygen Flow Rate 2 09/19/24 08:27 <Sagar Bennett MD - Last Filed: 09/22/24 11:02> Vital Signs Temperature 97.7 F 09/19/24 06:08 Pulse Rate 129 H 09/19/24 06:08 Respiratory Rate 19 09/19/24 06:08 Blood Pressure 153/90 H 09/19/24 06:08 Pulse Oximetry 96 09/19/24 06:08 Oxygen Delivery Room Air 09/19/24 06:08 Temperature 97.7 F 09/19/24 06:08 Pulse Rate 95 09/19/24 08:50 Respiratory Rate 12 09/19/24 08:31 Blood Pressure 122/73 09/19/24 08:31 Pulse Oximetry 100 09/19/24 08:35 Oxygen Delivery Room Air 09/19/24 08:35 Oxygen Flow Rate 2 09/19/24 08:27 <Berta Guevara MD - Last Filed: 09/19/24 08:45> Lab Data Lab results reviewed: Yes I reviewed the patient's lab results. <Sagar Bennett MD - Last Filed: 09/22/24 11:02> Result diagrams: 09/19/24 06:30 09/19/24 06:30 <Sagar Bennett MD - Last Filed: 09/22/24 11:02> Labs: Lab Results 09/19/24 09/19/24 Range/Units 06:30 07:57 WBC 13.1 H (4.5-10.0) K/mm3 RBC 4.49 (4.2-5.4) M/mm3 Hgb 13.8 (12.0-15.0) g/dL Hct 41.6 (37.0-47.0) % MCV 92.7 (80-100) fl MCH 30.7 (26-34) pg MCHC 33.2 (32-36) g/dl RDW 13.9 (11.5-14.5) % Plt Count 392 H (150-375) k/mm3 MPV 8.3 (7.4-10.4) fl Immature Gran % (Auto) 0.4 (0-0.5) % Neut % (Auto) 72.3 (45.5-73.1) % Lymph % (Auto) 20.1 (18.3-44.2) % [place] % (Auto) 6.2 (2.6-8.5) % Eos % (Auto) 0.5 (0-4.4) % Baso % (Auto) 0.5 (0.2-1.2) % Lymph # (Auto) 2.64 (0.9-3.2) K/mm3 [place] # (Auto) 0.8 H (0.1-0.6) K/mm3 Eos # (Auto) 0.1 (0-0.3) K/mm3 Baso # (Auto) 0.1 (0.0-0.1) K/mm3 Abs Immat Gran (auto) 0.05 H (0.00-0.031) K/mm3 Absolute Neuts (auto) 9.5 H (1.3-6.7) K/mm3 Absolute Nucleated RBC 0.000 (0.0-0.012) K/mm3 Nucleated RBC % 0.0 (0.0-0.2) % PT 12.8 (11.1-14.7) Seconds INR 0.9 APTT 32.0 (22.3-36.8) Seconds D-Dimer 0.35 (<0.48) ug/mL Sodium 131 L (137-145) mmol/L Potassium 4.0 (3.4-5.0) mmol/L Chloride 91 L (98-107) mmol/L Carbon Dioxide 29 (22-30) mmol/L Anion Gap 11 (4-12) mmol/L BUN 8 (7-17) mg/dL Creatinine 0.50 L (0.7-1.0) mg/dL Estim Creat Clear Calc 79 ml/min Estimated GFR > 60 (59 - ) Glucose 95 (65-110) mg/dL Calcium 9.4 (8.4-10.2) mg/dL Magnesium 1.8 (1.6-2.3) mg/dL Total Bilirubin 0.4 (0.2-1.3) mg/dL AST 23 (14-36) U/L ALT 17 (6-35) U/L Alkaline Phosphatase 80 (38-126) U/L Troponin I < 0.012 (0.000-0.034) ng/mL NT-Pro-B Natriuret Pep 767 H (19.9-100) pg/mL Total Protein 8.0 (6.3-8.2) g/dL Albumin 4.5 (3.5-5.1) g/dL TSH (Reflex) 2.400 (0.465-4.68) uIU/mL Urine Color Yellow (Yellow) Urine Appearance Clear (Clear) Urine pH 7.0 (5.0-9.0) Ur Specific [place] 1.004 (1.001-1.035) Urine Protein Negative (Negative) mg/dL Urine Glucose (UA) Negative (Negative) mg/dL Urine Ketones Negative (Negative) mg/dL Ur Blood (Man) Negative (Negative) Urine Nitrate Negative (Negative) Urine Bilirubin Negative (Negative) Urine Urobilinogen 0.2 (<2.0) mg/dL Leukocyte Esterase Rfl Negative (Negative) NITA/UL <Sagar Bennett MD - Last Filed: 09/22/24 11:02> Lab Results 09/19/24 09/19/24 Range/Units 06:30 07:57 WBC 13.1 H (4.5-10.0) K/mm3 RBC 4.49 (4.2-5.4) M/mm3 Hgb 13.8 (12.0-15.0) g/dL Hct 41.6 (37.0-47.0) % MCV 92.7 (80-100) fl MCH 30.7 (26-34) pg MCHC 33.2 (32-36) g/dl RDW 13.9 (11.5-14.5) % Plt Count 392 H (150-375) k/mm3 MPV 8.3 (7.4-10.4) fl Immature Gran % (Auto) 0.4 (0-0.5) % Neut % (Auto) 72.3 (45.5-73.1) % Lymph % (Auto) 20.1 (18.3-44.2) % [place] % (Auto) 6.2 (2.6-8.5) % Eos % (Auto) 0.5 (0-4.4) % Baso % (Auto) 0.5 (0.2-1.2) % Lymph # (Auto) 2.64 (0.9-3.2) K/mm3 [place] # (Auto) 0.8 H (0.1-0.6) K/mm3 Eos # (Auto) 0.1 (0-0.3) K/mm3 Baso # (Auto) 0.1 (0.0-0.1) K/mm3 Abs Immat Gran (auto) 0.05 H (0.00-0.031) K/mm3 Absolute Neuts (auto) 9.5 H (1.3-6.7) K/mm3 Absolute Nucleated RBC 0.000 (0.0-0.012) K/mm3 Nucleated RBC % 0.0 (0.0-0.2) % PT 12.8 (11.1-14.7) Seconds INR 0.9 APTT 32.0 (22.3-36.8) Seconds D-Dimer 0.35 (<0.48) ug/mL Sodium 131 L (137-145) mmol/L Potassium 4.0 (3.4-5.0) mmol/L Chloride 91 L (98-107) mmol/L Carbon Dioxide 29 (22-30) mmol/L Anion Gap 11 (4-12) mmol/L BUN 8 (7-17) mg/dL Creatinine 0.50 L (0.7-1.0) mg/dL Estim Creat Clear Calc 79 ml/min Estimated GFR > 60 (59 - ) Glucose 95 (65-110) mg/dL Calcium 9.4 (8.4-10.2) mg/dL Magnesium 1.8 (1.6-2.3) mg/dL Total Bilirubin 0.4 (0.2-1.3) mg/dL AST 23 (14-36) U/L ALT 17 (6-35) U/L Alkaline Phosphatase 80 (38-126) U/L Troponin I < 0.012 (0.000-0.034) ng/mL NT-Pro-B Natriuret Pep 767 H (19.9-100) pg/mL Total Protein 8.0 (6.3-8.2) g/dL Albumin 4.5 (3.5-5.1) g/dL TSH (Reflex) 2.400 (0.465-4.68) uIU/mL Urine Color Yellow (Yellow) Urine Appearance Clear (Clear) Urine pH 7.0 (5.0-9.0) Ur Specific [place] 1.004 (1.001-1.035) Urine Protein Negative (Negative) mg/dL Urine Glucose (UA) Negative (Negative) mg/dL Urine Ketones Negative (Negative) mg/dL Ur Blood (Man) Negative (Negative) Urine Nitrate Negative (Negative) Urine Bilirubin Negative (Negative) Urine Urobilinogen 0.2 (<2.0) mg/dL Leukocyte Esterase Rfl Negative (Negative) NITA/UL <Berta Guevara MD - Last Filed: 09/19/24 08:45> Critical Care Time Critical Care Time Critical Care Time: Yes <Berta Guevara MD - Last Filed: 09/19/24 08:45> Total Critical Care Time: 31 <Berta Guevara MD - Last Filed: 09/19/24 08:45> Discharge Plan Discharge Clinical Impression: COPD (chronic obstructive pulmonary disease), Atrial fibrillation <Sagar Bennett MD - Last Filed: 09/22/24 11:02> Patient Disposition: Home, Self-Care <Sagar Bennett MD - Last Filed: 09/22/24 11:02> Condition: Stable <Sagar Bennett MD - Last Filed: 09/22/24 11:02> Instructions: Acute Bronchitis (ED) <Sagar Bennett MD - Last Filed: 09/22/24 11:02> Additional Instructions: Please follow up with your doctor; Come back to the emergency room immediately if you have shortness of breath, chest pain, palpitations, or anything at all, or if you change your mind about being admitted. <Sagar Bennett MD - Last Filed: 09/22/24 11:02> Prescriptions: New azithromycin 250 mg tablet 250 mg PO DAILY 4 Days Qty: 4 0RF Rx Instructions: start on day 2 of therapy prednisone 20 mg tablet 40 mg PO DAILY 5 Days Qty: 10 0RF albuterol sulfate 90 mcg/actuation HFA aerosol inhaler 2 puff inhalation QID PRN (Reason: shortness of breath or wheezing) Qty: 8.5 0RF No Action prednisone 5 mg Tablet 5 mg PO DAILY clopidogrel 75 mg Tablet 75 mg PO DAILY aspirin 81 mg Tablet,Delayed Release (Dr/Ec) 81 mg PO DAILY spironolactone 25 mg Tablet 25 mg PO DAILY gabapentin 300 mg Capsule 300 mg PO QID loratadine 10 mg Tablet 10 mg PO DAILY memantine 5 mg Tablet 5 mg PO BID albuterol sulfate [Ventolin HFA] 90 mcg/actuation Hfa Aerosol Inhaler 1 inh INHALATION QID PRN (Reason: SOB) losartan 50 mg tablet 50 mg PO DAILY atorvastatin 20 mg tablet 20 mg PO DAILY donepezil 5 mg tablet 5 mg PO DAILY tizanidine 2 mg tablet 2 mg PO TID diltiazem HCl 180 mg capsule,extended release 24hr 180 mg PO DAILY Linzess 72 mcg capsule 30 mcg PO DAILY Breztri Aerosphere 160-9-4.8 mcg/actuation HFA aerosol inhaler 2 inh INHALATION BID ergocalciferol (vitamin D2) 1,250 mcg (50,000 unit) capsule 1,250 mcg PO WEEKLY Rx Instructions: every tuesday <Sagar Bennett MD - Last Filed: 09/22/24 11:02> Follow-up/Referrals: Shan,Terese Lomas MD [Primary Care Provider] - 2 Days <Sagar Bennett MD - Last Filed: 09/22/24 11:02>
[2024-09-19 06:49] LABS: INR 0.9; Prothrombin Time 12.8 Seconds (11.1-14.7)
[2024-09-19 06:50] LABS: Alanine Aminotransferase 17 U/L (6-35); Albumin Level 4.5 g/dL (3.5-5.1); Alkaline Phosphatase 80 U/L (38-126); Anion Gap 11 mmol/L (4-12); Aspartate Amino Transferase 23 U/L (14-36); Bilirubin,Total 0.4 mg/dL (0.2-1.3); Blood Urea Nitrogen 8 mg/dL (7-17); Calcium 9.4 mg/dL (8.4-10.2); Carbon Dioxide 29 mmol/L (22-30); Chloride 91 mmol/L (98-107); Estimated CRCL calculation 79 ml/min; Estimated Glomerular Filt Rate > 60; Glucose 95 mg/dL (65-110); Sodium 131 mmol/L (137-145)
[2024-09-19] MEDS: dilTIAZem 100 MG/100 ML 100 MG/100 ML BAG IV CONT (06:55)
--- NOTE | 2024-09-19 06:59 | PC.NURSE ---
rn double checked diltiazem drip with anna chacko
[2024-09-19 07:00] LABS: NT Pro B Type Natriuretic Pept 767 pg/mL (19.9-100); Troponin I < 0.012 ng/mL (0.000-0.034)
[2024-09-19 07:08] LABS: D Dimer 0.35 ug/mL (<0.48)
--- NOTE | 2024-09-19 07:11 | ECG_ITS ---
Test Date: 2024-09-19 06:07:44 Measurements Intervals [place] Rate: 113 P: 0 NH: 0 QRS: -61 QRSD: 81 T: 81 QT: 306 QTc: 421 Interpretive Statements ATRIAL FIBRILLATION WITH RAPID VENTRICULAR RESPONSE RIGHT VENTRICULAR CONDUCTION DELAY LEFT ANTERIOR FASCICULAR BLOCK BORDERLINE ST-T WAVE ABNORMALITY- ANTEROLAT/HIGH LAT LEADS BASELINE ARTIFACT- I, II, III, AVR, AVL, AVF, V1-V3 ABNORMAL ECG No previous ECG available for comparison Electronically Signed On 09-19-2024 07:26:23 REIMBURSEMENT CONSULTANT by Sergio House D.O.
--- NOTE | 2024-09-19 07:14 | PC.NURSE ---
pt urinated on bed villegas,. rn did not notice ua ordered.
[2024-09-19 07:16] LABS: Magnesium 1.8 mg/dL (1.6-2.3)
[2024-09-19 08:09] LABS: Add Urine Microscopic? NO; Appearance Urine Clear (Clear); Bilirubin Urine Negative (Negative); Blood Urine Negative (Negative); Color Urine Yellow (Yellow); Glucose Urine UA Negative (Negative); Ketones Urine Negative (Negative); Leukocyte Esterase Ur Negative LEU/UL (Negative); Nitrate Urine Negative (Negative); Protein Urine Negative (Negative); Specific Grav Ur 1.004 (1.001-1.035); Urobilinogen Urine 0.2 mg/dL (<2.0)
--- NOTE | 2024-09-19 08:23 | PC.NURSE ---
Pt sleeping. O2 dropped to 88-89%. 2 L NC placed on pt at this time
--- NOTE | 2024-09-19 08:41 | ECG_ITS ---
Test Date: 2024-09-19 07:15:39 Measurements Intervals [place] Rate: 90 P: 77 NH: 152 QRS: -51 QRSD: 84 T: 68 QT: 354 QTc: 435 Interpretive Statements SINUS RHYTHM POSSIBLE LEFT ATRIAL ENLARGEMENT LEFT ANTERIOR FASCICULAR BLOCK ANTEROSEPTAL INFARCT, AGE INDETERMINATE ABNORMAL ECG Compared to ECG 09/19/2024 06:07:44 ATRIAL FIBRILLATION NO LONGER PRESENT Electronically Signed On 09-19-2024 12:47:04 REMOTE ENCODING CENTER MANAGER by Sergio House D.O.
[2024-09-19] MEDS: AZITHROMYCIN 250 MG TABLET 500 MG PO (08:44)
== END 2024-09-19 08:51 | disposition home or self-care (01) ==
PROVIDERS: Emergency Medicine; Emergency Provider Emergency Medicine; PCP Internal Medicine
DX: J44.9 Chronic obstructive pulmonary disease, unspecified (principal); I48.91 Unspecified atrial fibrillation; I25.10 Atherosclerotic heart disease of native coronary artery without angina pectoris; I50.9 Heart failure, unspecified; F17.210 Nicotine dependence, cigarettes, uncomplicated; Z90.710 Acquired absence of both cervix and uterus; Z79.82 Long term (current) use of aspirin; Z79.899 Other long term (current) drug therapy; Z79.02 Long term (current) use of antithrombotics/antiplatelets; I45.9 Conduction disorder, unspecified; I44.4 Left anterior fascicular block; R94.31 Abnormal electrocardiogram [ECG] [EKG]
CPT/HCPCS: 36415; 71045; 80053; 81003; 83735; 83880; 84443; 84484; 85025; 85380; 85610; 85730; 93005; 94640; 96365; 96366; 96375; 99284; A9270; J2919

== ENCOUNTER 2025-05-10 17:33 | Emergency (ER) | payer OTHER, SELFPAY ==
[2025-05-10] VITALS (7 sets, daily range): BP systolic 119–159; BP diastolic 83–115; PULSE 87–94; RESP 16–19; O2SAT 94–100
--- NOTE | ~2025-05-10 | XR_ITS ---
CHEST RADIOGRAPH, PA AND LATERAL CLINICAL HISTORY: shortness of breath, cough . COMPARISON: 09/19/2024 TECHNIQUE: PA and lateral views of the chest. FINDINGS The cardiomediastinal silhouette is unremarkable. The lungs are clear. IMPRESSION: No focal infiltrate or effusion. If clinical suspicion persists, cross-sectional imaging (noncontrast enhanced CT examination of the c hest) is suggested for further evaluation. Reviewed, dictated and finalized at location A. IMPRESSION: No focal infiltrate or effusion. If clinical suspicion persists, cross-sectional imaging (noncontrast enhanced C T examination of the chest) is suggested for further evaluation.
--- NOTE | 2025-05-10 17:40 | ECG_ITS ---
Test Date: 2025-05-10 19:21:37 Measurements Intervals [place] Rate: 76 P: 73 [place]: 151 QRS: -65 QRSD: 92 T: 62 QT: 368 QTc: 415 Interpretive Statements SINUS RHYTHM WITH SUPRAVENTRICULAR TRIGEMINY LEFT ANTERIOR FASCICULAR BLOCK ANTEROSEPTAL INFARCT, AGE INDETERMINATE BASELINE ARTIFACT- I, II, III, AVR, AVL, V3-V6 ABNORMAL ECG Compared to ECG 09/19/2024 07:15:39 SUPRAVENTRICULAR TRIGEMINY IS NOW PRESENT Electronically Signed On 05-11-2025 07:11:39 CDT by Sergio House D.O.
--- NOTE | 2025-05-10 17:42 | ED_ITS ---
HPI - SOB/Dyspnea General Chief Complaint: Shortness of Breath/Dyspnea <Mercedes Sosa APRN - Last Filed: 05/10/25 17:49> Stated Complaint: shortness of breath my sodium is really low <Mercedes Sosa APRN - Last Filed: 05/10/25 17:49> Time Seen by Provider: 05/10/25 17:35 <Mercedes Sosa APRN - Last Filed: 05/10/25 17:49> Focused HPI: Patient is a 69-year-old female who presents to the ER with increased shortness of breath. She reports she received a call from her primary care provider earlier today that her sodium was low. Patient endorses increased shortness of breath and rib cage pain that have been going on for approximately 2 days. She endorses a history of a cardiac stent, COPD, and high blood pressure. She denies any abdominal pain, recent fevers, or altered mental status. GENERAL: Well-appearing, well-nourished, and in mild respiratory distress. HEAD: Normocephalic, atraumatic. CHEST: Wheezing to auscultation. ?Mild respiratory distress. HEART: Regular rate and rhythm.? NEURO: ?Alert and oriented x3. Patient screened in triage and initial orders placed.? ?Additional care and disposition to be based upon?diagnostic testing and treatment. <Mercedes Sosa APRN - Last Filed: 05/10/25 17:49> History of Present Illness HPI Narrative: Agree with the above HPI <Sagar Bennett MD - Last Filed: 05/11/25 04:55> Related Data Home Medications: Home Medications ?Medication ?Instructions ?Recorded ?Confirmed ?Last Taken ?Type albuterol sulfate 90 mcg/actuation 1 inh inhalation QID PRN SOB 01/14/20 01/02/24 04/15/20 History aerosol inhaler (Ventolin HFA) aspirin 81 mg tablet,delayed 81 mg PO DAILY 01/14/20 01/02/24 04/15/20 07:00 History release clopidogrel 75 mg tablet 75 mg PO DAILY 01/14/20 01/02/24 04/15/20 07:00 History gabapentin 300 mg capsule 300 mg PO QID 01/14/20 01/02/24 04/15/20 History loratadine 10 mg tablet 10 mg PO DAILY 01/14/20 01/02/24 04/15/20 07:00 History memantine 5 mg tablet 5 mg PO BID 01/14/20 01/02/24 Unknown History prednisone 5 mg tablet 5 mg PO DAILY 01/14/20 01/02/24 04/15/20 History spironolactone 25 mg tablet 25 mg PO DAILY 01/14/20 01/02/24 04/15/20 07:00 History atorvastatin 20 mg tablet 20 mg PO DAILY 01/02/24 01/02/24 Unknown History budesonide 160 mcg-glycopyr 9 2 inh inhalation BID 01/02/24 01/02/24 Unknown History mcg-formot 4.8 mcg/actuation HFA inhaler (Breztri Aerosphere) diltiazem HCl 180 mg 180 mg PO DAILY 01/02/24 01/02/24 Unknown History capsule,extended release 24 hr donepezil 5 mg tablet 5 mg PO DAILY 01/02/24 01/02/24 Unknown History ergocalciferol (vitamin D2) 1,250 1,250 mcg PO WEEKLY 01/02/24 01/02/24 01/01/24 History mcg (50,000 unit) capsule linaclotide 72 mcg capsule 30 mcg PO DAILY 01/02/24 01/02/24 Unknown History (Linzess) losartan 50 mg tablet 50 mg PO DAILY 01/02/24 01/02/24 Unknown History tizanidine 2 mg tablet 2 mg PO TID 01/02/24 01/02/24 Unknown History <Mercedes Sosa APRN - Last Filed: 05/10/25 17:49> Allergies/Adverse Reactions: Allergies Allergy/AdvReac Type Severity Reaction Status Date / Time naproxen AdvReac Unknown Nausea and Verified 05/10/25 17:35 Dizziness <Mercedes Sosa APRN - Last Filed: 05/10/25 17:49> Review of Systems 2 Review of Systems: All systems reviewed & are unremarkable except as noted in HPI and below <Sagar Bennett MD - Last Filed: 05/11/25 04:55> [facility] Past Medical History Medical History: Medical History Atrial fibrillation CAD (coronary artery disease) CHF (congestive heart failure) History of CHF (congestive heart failure) History of COPD History of coronary artery disease Tobacco abuse <Mercedes Sosa APRN - Last Filed: 05/10/25 17:49> Surgical History Surgical History: Surgical History H/O neck surgery pins placed in neck H/O: hysterectomy History of cardiac catheterization History of carpal tunnel release of both wrists History of tooth extraction <Mercedes Sosa DIRECTOR DATABASE - Last Filed: 05/10/25 17:49> Family History Family History: Family History Mother Breast cancer COPD (chronic obstructive pulmonary disease) Cervical cancer Sibling Heart failure Alcoholism Multiple sclerosis <Mercedes Sosa APRN - Last Filed: 05/10/25 17:49> Social History Social History: Social History Social History: Patient is . She lives with her male friend. She has no children. She is a current smoker. She is a full code. She does designate her 2 sisters, Marisol Beard and Luz Mario, as her healthcare surrogates but has no official POA. Smoking packs per day: 2 Smoking cigarettes per day: 40.0 Years smoked: 50 Smoking pack-years: 100.00 Smoking status: Current every day smoker Tobacco type: cigarettes Second hand tobacco smoke exposure: Yes Alcohol intake: unknown Substance use: never Substance use type: does not use Living arrangements: with friend(s) Additional living arrangements comments: Lives with friend Gender identity (if verbalized by the patient): Female Spiritual care concerns: No <Mercedes Sosa, CATIE - Last Filed: 05/10/25 17:49> Exam 2 Narrative: APPEARANCE: Well appearing, no pain, no distress, well-nourished. HEAD: normocephalic, atraumatic. EYES: PERRLA/EOMI, conjunctivae clear. NOSE: Normal no drainage EARS:TMS clear with good light reflex. THROAT: Pharynx clear, no exudate. NECK: Supple. No adenopathy, no masses. RESPIRATORY: Airway patent, respirations nonlabored. Clear to auscultation bilaterally, no rales, rhonchi, wheezing. CARDIOVASCULAR: Regular rate and rhythm without murmurs rubs or gallops. ABDOMINAL: Soft, nontender, nondistended, normal bowel sounds MUSCULOSKELETAL: Moves all extremities. Strength/ROM intact, No edema, No calf tenderness. NEURO: Alert. Cranial nerves II through XII intact. Grossly intact SKIN: Warm, dry. Normal Color <Sagar Bennett MD - Last Filed: 05/11/25 04:55> Course Vital Signs Vital signs: Vital Signs Pulse Rate 94 05/10/25 17:35 Respiratory Rate 17 05/10/25 17:35 Blood Pressure 159/91 H 05/10/25 17:35 Pulse Oximetry 100 05/10/25 17:35 Oxygen Delivery Room Air 05/10/25 17:35 Pulse Rate 99 05/11/25 00:14 Respiratory Rate 18 05/11/25 00:14 Blood Pressure 125/97 H 05/11/25 00:14 Pulse Oximetry 96 05/11/25 00:14 Oxygen Delivery Room Air 05/10/25 21:30 <Mercedes Sosa APRN - Last Filed: 05/10/25 17:49> Vital Signs Pulse Rate 94 05/10/25 17:35 Respiratory Rate 17 05/10/25 17:35 Blood Pressure 159/91 H 05/10/25 17:35 Pulse Oximetry 100 05/10/25 17:35 Oxygen Delivery Room Air 05/10/25 17:35 Pulse Rate 99 05/11/25 00:14 Respiratory Rate 18 05/11/25 00:14 Blood Pressure 125/97 H 05/11/25 00:14 Pulse Oximetry 96 05/11/25 00:14 Oxygen Delivery Room Air 05/10/25 21:30 <Sagar Bennett MD - Last Filed: 05/11/25 04:55> MDM - SOB/Dyspnea MDM Narrative Medical decision making narrative: 69-year-old female presents emergency department for evaluation for hyponatremia. Patient does have a longstanding history of hyponatremia. Patient is afebrile but does have a leukocytosis of 14.8 but patient often does have a elevated white blood cell count. Patient is currently on steroids. Patient does have a sodium of 129 which is similar to her previous sodium levels. Patient was treated with a L of lactated Ringer's. Patient does have history of CHF and patient's proBNP is 758 but patient has no lower extremity swelling and no evidence of pleural effusion or pulmonary vascular congestion on the chest x-ray. Patient was treated with albuterol for her COPD and did feel improved. Patient was encouraged close follow-up with primary care physician for follow-up for her sodium level. <Sagar Bennett MD - Last Filed: 05/11/25 04:55> Differential Diagnosis Differential diagnosis: Likely acute exacerbation of chronic obstructive airways disease, congestive heart failure, community acquired pneumonia, asthma with exacerbation, pulmonary embolism and other <Sagar Bennett MD - Last Filed: 05/11/25 04:55> Lab Data Attestation: I reviewed the patient's lab results. <Sagar Bennett MD - Last Filed: 05/11/25 04:55> Result diagrams: 05/10/25 19:25 05/10/25 19:25 <Mercedes Sosa APRN - Last Filed: 05/10/25 17:49> Labs: Lab Results 05/10/25 05/10/25 Range/Units 19:25 21:33 WBC 14.8 H (4.5-10.0) K/mm3 RBC 4.48 (4.2-5.4) M/mm3 Hgb 13.5 (12.0-15.0) g/dL Hct 40.6 (37.0-47.0) % MCV 90.6 (80-100) fl MCH 30.1 (26-34) pg MCHC 33.3 (32-36) g/dl RDW 13.2 (11.5-14.5) % Plt Count 291 (150-375) k/mm3 MPV 8.5 (7.4-10.4) fl Immature Gran % (Auto) 0.3 (0-0.5) % Neut % (Auto) 73.5 H (45.5-73.1) % Lymph % (Auto) 19.0 (18.3-44.2) % [place] % (Auto) 5.8 (2.6-8.5) % Eos % (Auto) 0.9 (0-4.4) % Baso % (Auto) 0.5 (0.2-1.2) % Lymph # (Auto) 2.82 (0.9-3.2) K/mm3 [place] # (Auto) 0.9 H (0.1-0.6) K/mm3 Eos # (Auto) 0.1 (0-0.3) K/mm3 Baso # (Auto) 0.1 (0.0-0.1) K/mm3 Abs Immat Gran (auto) 0.05 H (0.00-0.031) K/mm3 Absolute Neuts (auto) 10.9 H (1.3-6.7) K/mm3 Absolute Nucleated RBC 0.000 (0.0-0.012) K/mm3 Nucleated RBC % 0.0 (0.0-0.2) % PT 12.6 (11.1-14.7) Seconds INR 0.9 APTT 31.1 (22.3-36.8) Seconds Sodium 129 L (137-145) mmol/L Potassium 3.9 (3.4-5.0) mmol/L Chloride 95 L (98-107) mmol/L Carbon Dioxide 29 (22-30) mmol/L Anion Gap 5 (4-12) mmol/L BUN 16 (7-17) mg/dL Creatinine 0.59 L (0.7-1.0) mg/dL Estim Creat Clear Calc 68 ml/min Estimated GFR > 60 (59 - ) Glucose 93 (65-110) mg/dL Calcium 8.8 (8.4-10.2) mg/dL Magnesium 2.0 (1.6-2.3) mg/dL Total Bilirubin 0.4 (0.2-1.3) mg/dL AST 19 (14-36) U/L ALT 15 (6-35) U/L Alkaline Phosphatase 62 (38-126) U/L Troponin I < 0.012 (0.000-0.034) ng/mL NT-Pro-B Natriuret Pep 758 H (19.9-100) pg/mL Total Protein 6.2 L (6.3-8.2) g/dL Albumin 3.7 (3.5-5.1) g/dL Urine Color Yellow (Yellow) Urine Appearance Clear (Clear) Urine pH 7.5 (5.0-9.0) Ur Specific [place] 1.014 (1.001-1.035) Urine Protein Negative (Negative) mg/dL Urine Glucose (UA) Negative (Negative) mg/dL Urine Ketones Negative (Negative) mg/dL Ur Blood (Man) Negative (Negative) Urine Nitrate Negative (Negative) Urine Bilirubin Negative (Negative) Urine Urobilinogen 0.2 (<2.0) mg/dL Leukocyte Esterase Rfl Negative (Negative) NITA/UL <Mercedes Sosa, DIRECTOR DATABASE - Last Filed: 05/10/25 17:49> Lab Results 05/10/25 05/10/25 Range/Units 19:25 21:33 WBC 14.8 H (4.5-10.0) K/mm3 RBC 4.48 (4.2-5.4) M/mm3 Hgb 13.5 (12.0-15.0) g/dL Hct 40.6 (37.0-47.0) % MCV 90.6 (80-100) fl MCH 30.1 (26-34) pg MCHC 33.3 (32-36) g/dl RDW 13.2 (11.5-14.5) % Plt Count 291 (150-375) k/mm3 MPV 8.5 (7.4-10.4) fl Immature Gran % (Auto) 0.3 (0-0.5) % Neut % (Auto) 73.5 H (45.5-73.1) % Lymph % (Auto) 19.0 (18.3-44.2) % [place] % (Auto) 5.8 (2.6-8.5) % Eos % (Auto) 0.9 (0-4.4) % Baso % (Auto) 0.5 (0.2-1.2) % Lymph # (Auto) 2.82 (0.9-3.2) K/mm3 [place] # (Auto) 0.9 H (0.1-0.6) K/mm3 Eos # (Auto) 0.1 (0-0.3) K/mm3 Baso # (Auto) 0.1 (0.0-0.1) K/mm3 Abs Immat Gran (auto) 0.05 H (0.00-0.031) K/mm3 Absolute Neuts (auto) 10.9 H (1.3-6.7) K/mm3 Absolute Nucleated RBC 0.000 (0.0-0.012) K/mm3 Nucleated RBC % 0.0 (0.0-0.2) % PT 12.6 (11.1-14.7) Seconds INR 0.9 APTT 31.1 (22.3-36.8) Seconds Sodium 129 L (137-145) mmol/L Potassium 3.9 (3.4-5.0) mmol/L Chloride 95 L (98-107) mmol/L Carbon Dioxide 29 (22-30) mmol/L Anion Gap 5 (4-12) mmol/L BUN 16 (7-17) mg/dL Creatinine 0.59 L (0.7-1.0) mg/dL Estim Creat Clear Calc 68 ml/min Estimated GFR > 60 (59 - ) Glucose 93 (65-110) mg/dL Calcium 8.8 (8.4-10.2) mg/dL Magnesium 2.0 (1.6-2.3) mg/dL Total Bilirubin 0.4 (0.2-1.3) mg/dL AST 19 (14-36) U/L ALT 15 (6-35) U/L Alkaline Phosphatase 62 (38-126) U/L Troponin I < 0.012 (0.000-0.034) ng/mL NT-Pro-B Natriuret Pep 758 H (19.9-100) pg/mL Total Protein 6.2 L (6.3-8.2) g/dL Albumin 3.7 (3.5-5.1) g/dL Urine Color Yellow (Yellow) Urine Appearance Clear (Clear) Urine pH 7.5 (5.0-9.0) Ur Specific [place] 1.014 (1.001-1.035) Urine Protein Negative (Negative) mg/dL Urine Glucose (UA) Negative (Negative) mg/dL Urine Ketones Negative (Negative) mg/dL Ur Blood (Man) Negative (Negative) Urine Nitrate Negative (Negative) Urine Bilirubin Negative (Negative) Urine Urobilinogen 0.2 (<2.0) mg/dL Leukocyte Esterase Rfl Negative (Negative) NITA/UL <Sagar Bennett MD - Last Filed: 05/11/25 04:55> Imaging Data Radiologist's impression: Impressions Chest X-Ray 05/10/25 18:51 IMPRESSION: No focal infiltrate or effusion. If clinical suspicion persists, cross-sectional imaging (noncontrast enhanced CT examination of the chest) is suggested for further evaluation. <Sagar Bennett MD - Last Filed: 05/11/25 04:55> Discharge Plan Discharge Clinical Impression: COPD (chronic obstructive pulmonary disease), Acute hyponatremia <Mercedes Sosa APRN - Last Filed: 05/10/25 17:49> Patient Disposition: Home <Mercedes Sosa APRN - Last Filed: 05/10/25 17:49> Condition: Stable <Mercedes Sosa APRN - Last Filed: 05/10/25 17:49> Instructions: Antibiotic Form, Hyponatremia (ED), COPD (Chronic Obstructive Pulmonary Disease) (ED) <Mercedes Sosa APRN - Last Filed: 05/10/25 17:49> Additional Instructions: Continue home medications as directed. Have close follow-up with your primary care physician for recheck of your sodium level. <Mercedes Sosa APRN - Last Filed: 05/10/25 17:49> Patient Language: Guyanese <Mercedes Sosa APRN - Last Filed: 05/10/25 17:49> Prescriptions: No Action azithromycin 250 mg tablet 250 mg PO DAILY 4 Days Qty: 4 0RF Rx Instructions: start on day 2 of therapy prednisone 20 mg tablet 40 mg PO DAILY 5 Days Qty: 10 0RF albuterol sulfate 90 mcg/actuation HFA aerosol inhaler 2 puff inhalation QID PRN (Reason: shortness of breath or wheezing) Qty: 8.5 0RF prednisone 5 mg Tablet 5 mg PO DAILY clopidogrel 75 mg Tablet 75 mg PO DAILY aspirin 81 mg Tablet,Delayed Release (Dr/Ec) 81 mg PO DAILY spironolactone 25 mg Tablet 25 mg PO DAILY gabapentin 300 mg Capsule 300 mg PO QID loratadine 10 mg Tablet 10 mg PO DAILY memantine 5 mg Tablet 5 mg PO BID albuterol sulfate [Ventolin HFA] 90 mcg/actuation Hfa Aerosol Inhaler 1 inh INHALATION QID PRN (Reason: SOB) losartan 50 mg tablet 50 mg PO DAILY atorvastatin 20 mg tablet 20 mg PO DAILY donepezil 5 mg tablet 5 mg PO DAILY tizanidine 2 mg tablet 2 mg PO TID diltiazem HCl 180 mg capsule,extended release 24hr 180 mg PO DAILY Linzess 72 mcg capsule 30 mcg PO DAILY Breztri Aerosphere 160-9-4.8 mcg/actuation HFA aerosol inhaler 2 inh INHALATION BID ergocalciferol (vitamin D2) 1,250 mcg (50,000 unit) capsule 1,250 mcg PO WEEKLY Rx Instructions: every tuesday <Mercedes Sosa APRN - Last Filed: 05/10/25 17:49> Follow-up/Referrals: Shan,Terese Lomas MD [Primary Care Provider] - <Mercedes Sosa APRN - Last Filed: 05/10/25 17:49>
[2025-05-10 19:31] LABS: Basophils Absolute Auto 0.1 K/mm3 (0.0-0.1); Basophils Percent Auto 0.5 % (0.2-1.2); Eosinophils Absolute Auto 0.1 K/mm3 (0-0.3); Eosinophils Percent Auto 0.9 % (0-4.4); Hematocrit 40.6 % (37.0-47.0); Hemoglobin 13.5 g/dL (12.0-15.0); Immature Granulocyte Absolute 0.05 K/mm3 (0.00-0.031); Immature Granulocyte Percent A 0.3 % (0-0.5); Lymphocytes Absolute Auto 2.82 K/mm3 (0.9-3.2); Mean Corpuscular HGB Conc 33.3 g/dl (32-36); Mean Corpuscular Hemoglobin 30.1 pg (26-34); Mean Corpuscular Volume 90.6 fl (80-100); Mean Platelet Volume 8.5 fl (7.4-10.4); Monocytes Absolute Auto 0.9 K/mm3 (0.1-0.6); Monocytes Percent Auto 5.8 % (2.6-8.5); Neutrophils Absolute Auto 10.9 K/mm3 (1.3-6.7); Neutrophils Percent Auto 73.5 % (45.5-73.1); Platelet Count Result 291 k/mm3 (150-375); Red Blood Count 4.48 M/mm3 (4.2-5.4); Red Cell Distribution Width 13.2 % (11.5-14.5); White Blood Count 14.8 K/mm3 (4.5-10.0)
[2025-05-10 19:41] LABS: INR 0.9; Prothrombin Time 12.6 Seconds (11.1-14.7)
[2025-05-10 19:42] LABS: Partial Thromboplastin Time 31.1 Seconds (22.3-36.8)
[2025-05-10 19:52] LABS: Alanine Aminotransferase 15 U/L (6-35); Albumin Level 3.7 g/dL (3.5-5.1); Alkaline Phosphatase 62 U/L (38-126); Anion Gap 5 mmol/L (4-12); Aspartate Amino Transferase 19 U/L (14-36); Bilirubin,Total 0.4 mg/dL (0.2-1.3); Blood Urea Nitrogen 16 mg/dL (7-17); Calcium 8.8 mg/dL (8.4-10.2); Carbon Dioxide 29 mmol/L (22-30); Chloride 95 mmol/L (98-107); Estimated CRCL calculation 68 ml/min; Estimated Glomerular Filt Rate > 60; Glucose 93 mg/dL (65-110); Potassium 3.9 mmol/L (3.4-5.0); Sodium 129 mmol/L (137-145); Total Protein 6.2 g/dL (6.3-8.2)
[2025-05-10 20:03] LABS: NT Pro B Type Natriuretic Pept 758 pg/mL (19.9-100); Troponin I < 0.012 ng/mL (0.000-0.034)
[2025-05-10] MEDS: ALBUTEROL SULFATE NEB 2.5 MG/3 ML INH 5 MG INHALATION (21:35)
[2025-05-10 21:43] LABS: Add Urine Microscopic? NO; Appearance Urine Clear (Clear); Bilirubin Urine Negative (Negative); Blood Urine Negative (Negative); Color Urine Yellow (Yellow); Glucose Urine UA Negative (Negative); Ketones Urine Negative (Negative); Leukocyte Esterase Ur Negative LEU/UL (Negative); Nitrate Urine Negative (Negative); Protein Urine Negative (Negative); Specific Grav Ur 1.014 (1.001-1.035); Urobilinogen Urine 0.2 mg/dL (<2.0); pH Urine 7.5 (5.0-9.0)
[2025-05-10] MEDS: LACTATED RINGERS 1,000 ML 999 ML IV CONT (22:23)
[2025-05-11 00:14] VITALS: BP 125/97; PULSE 99; RESP 18; O2SAT 96
== END 2025-05-10 23:42 | disposition home or self-care (01) ==
PROVIDERS: Registered Nurse; Emergency Provider Emergency Medicine; PCP Internal Medicine
DX: J44.9 Chronic obstructive pulmonary disease, unspecified (principal); E87.1 Hypo-osmolality and hyponatremia; I48.91 Unspecified atrial fibrillation; I11.0 Hypertensive heart disease with heart failure; I25.10 Atherosclerotic heart disease of native coronary artery without angina pectoris; I50.9 Heart failure, unspecified; F17.210 Nicotine dependence, cigarettes, uncomplicated; Z90.710 Acquired absence of both cervix and uterus; Z95.5 Presence of coronary angioplasty implant and graft; Z79.02 Long term (current) use of antithrombotics/antiplatelets; Z79.82 Long term (current) use of aspirin; Z79.899 Other long term (current) drug therapy; I44.4 Left anterior fascicular block; R94.31 Abnormal electrocardiogram [ECG] [EKG]; R00.8 Other abnormalities of heart beat
CPT/HCPCS: 36415; 71046; 80053; 81003; 83735; 83880; 84484; 85025; 85610; 85730; 93005; 94640; 96360; 99284; J7120